=== PATIENT | male | born 1935 | race Caucasian/White ===

== ENCOUNTER 2016-05-25 13:56 | Inpatient (IN) | payer MEDICARE ==
[~2016-05-25] VITALS: Ht 157.5 cm; Wt 45.4 kg
[2016-05-25] VITALS (9 sets, daily range): BP systolic 95–117; BP diastolic 40–69
[2016-05-25] MEDS ORDERED: IV NORMAL SALINE 1000ML BAG 1,000 ML IV ONE ×2 (14:00→15:45)
[2016-05-25] MEDS ORDERED: INSULIN,REGULAR 150 UNIT DRIP 150 ML IV ONE (14:00)
--- NOTE | 2016-05-25 14:20 | RAD ---
EXAM: Chest, single view. HISTORY: Weakness. COMPARISON: None. FINDINGS: A frontal view of the chest is obtained. There is no infiltrate, effusion or pneumothorax. The heart is normal in size. There is a tortuous thoracic aorta. There is slight widening of the right paratracheal stripe likely due to arch great vessels and slight oblique positioning. IMPRESSION: No acute pulmonary finding.
[2016-05-25 14:35] LABS: BASO # 0.1 x10^3/uL (0.0-0.2); BASO % 1 % (0-3); EOS % 0 % (0-3); HEMATOCRIT 38.1 % (39.0-53.0); HEMOGLOBIN 12.1 g/dL (13.0-17.5); LYMPH % 29 % (24-48); MEAN CORPUSCULAR HEMOGLOBIN 31 pg (25-35); MEAN CORPUSCULAR HGB CONC 32 g/dL (31-37); MEAN CORPUSCULAR VOLUME 97 fL (79-100); MONO % 6 % (0-9); NEUT % 64 % (31-73); PLATELET COUNT 251 x10^3/uL (140-400); RED BLOOD COUNT 3.92 x10^6/uL (4.30-5.70); RED CELL DISTRIBUTION WIDTH 14.7 % (11.5-14.5); WHITE BLOOD COUNT 20.5 x10^3/uL (4.0-11.0)
[2016-05-25 14:53] LABS: ALBUMIN 3.3 g/dL (3.4-5.0); ALBUMIN/GLOBULIN RATIO 0.9 (1.0-1.7); CALCIUM 9.5 mg/dL (8.5-10.1); CREATININE 3.8 mg/dL (0.7-1.3); GFR 15.3; POTASSIUM 5.7 mmol/L (3.5-5.1); TOTAL PROTEIN 7.1 g/dL (6.4-8.2)
[2016-05-25 15:17] LABS: PLT ESTIMATE ADEQUATE (ADEQUATE); TOXIC GRANULATION SLIGHT
[2016-05-25] MEDS ORDERED: INSULIN REGULAR VIAL 150 UNIT in 0.9 % SODIUM CHLORIDE 150ML 150 ML IV PRN ×2 (15:30→18:15)
[2016-05-25] MEDS ORDERED: POTASSIUM CHLORIDE 10MEQ 100 ML IV PRN ×6 (15:30→18:15)
--- NOTE | 2016-05-25 15:40 | PHYS DOC ---
Past Medical History Past Medical History: Diabetes-Type II, Unknown Past Surgical History: Other Additional Past Surgical Histo: unknown Alcohol Use: None Additional Information: unknown Drug Use: None Adult General Chief Complaint Chief Complaint: HYPERGLYCEMIA HPI HPI 81-year-old male who's had increasing weakness and altered mental status as well as increased work of breathing for the last several days. Patient has history of noncompliant diabetes and his family at bedside state he's been eating a lot of cake and drinking Mountain Dew. He is not alert and oriented at this time but does follow basic commands. He denies any specific complaints. They believe he does not a do a good job of drink fluids at home. Family at bedside state they are concerned and that he needs assistance and would like him evaluated for this. Review of Systems Review of Systems Constitutional: Denies fever or chills [] Eyes: Denies change in visual acuity, redness, or eye pain [] HENT: Denies nasal congestion or sore throat [] Respiratory: Denies cough or shortness of breath [] Cardiovascular: No additional information not addressed in HPI [] GI: Denies abdominal pain, nausea, vomiting, bloody stools or diarrhea [] : Denies dysuria or hematuria [] Musculoskeletal: Denies back pain or joint pain [] Integument: Denies rash or skin lesions [] Neurologic: Denies headache, focal weakness or sensory changes [] Endocrine: Denies polyuria or polydipsia [] Current Medications Current Medications Current Medications Medications (Trade) Dose Ordered Sig/Nicole Start Time Stop Time Status Last Admin Dose Admin Insulin Human Regular (Novolin R Vial) 10 unit 1X ONCE 05/25/16 16:15 05/25/16 16:16 DC Insulin Human Regular 150 unit/ Sodium Chloride 151.5 ml @ 0 mls/hr CONT PRN PRN 05/25/16 15:30 Lorazepam (Ativan) 2 mg STK-MED ONCE 05/25/16 16:59 05/25/16 17:00 DC Ondansetron HCl 4 mg 4 mg PRN Q8HRS PRN 05/25/16 15:45 05/26/16 15:44 Potassium Chloride (KCl Premix 10meq) 100 ml @ 100 mls/hr PRN Q1HR PRN 05/25/16 15:30 Sodium Bicarbonate 50 meq 1X ONCE 05/25/16 15:45 05/25/16 15:46 DC 05/25/16 16:01 50 MEQ Sodium Chloride (Iv Sodium Chloride 0.9% 1000ml Bag) 1,000 ml @ 125 mls/hr Q8H 05/25/16 15:37 05/26/16 15:36 Allergies Allergies Allergies Coded Allergies Type Severity Reaction Last Updated Verified Penicillins Allergy Intermediate 05/25/16 Yes Physical Exam Physical Exam Constitutional: Well developed, well nourished, no acute distress, non-toxic appearance. [] HENT: Normocephalic, atraumatic, bilateral external ears normal, oropharynx moist, no oral exudates, nose normal. [] Eyes: PERRLA, EOMI, conjunctiva normal, no discharge. [] Neck: Normal range of motion, no tenderness, supple, no stridor. [] Cardiovascular:Heart rate regular rhythm, no murmur [] Lungs & Thorax: Bilateral breath sounds clear to auscultation, tachypnea [] Abdomen: Bowel sounds normal, soft, no tenderness, no masses, no pulsatile masses. [] Skin: Warm, dry, no erythema, no rash. [] Back: No tenderness, no CVA tenderness. [] Extremities: No tenderness, no cyanosis, no clubbing, ROM intact, no edema. [] Neurologic: Alert and oriented X 3, normal motor function, normal sensory function, no focal deficits noted. [] Psychologic: Affect normal, judgement normal, mood normal. [] Current Patient Data Vital Signs Vital Signs Date Time Temp Pulse Resp B/P Pulse Ox O2 Delivery O2 Flow Rate FiO2 05/25/16 16:34 81 24 121/56 96 Room Air 05/25/16 13:57 97.7 97.7 Lab Values Laboratory Tests Test 05/25/16 14:23 05/25/16 15:36 White Blood Count 20.5x10^3/uL (4.0-11.0) H Red Blood Count 3.92x10^6/uL (4.30-5.70) L Hemoglobin 12.1g/dL (13.0-17.5) L Hematocrit 38.1% (39.0-53.0) L Mean Corpuscular Volume 97fL (79-100) Mean Corpuscular Hemoglobin 31pg (25-35) Mean Corpuscular Hemoglobin Concent 32g/dL (31-37) Red Cell Distribution Width 14.7% (11.5-14.5) H Platelet Count 251x10^3/uL (140-400) Neutrophils (%) (Auto) 64% (31-73) Lymphocytes (%) (Auto) 29% (24-48) Monocytes (%) (Auto) 6% (0-9) Eosinophils (%) (Auto) 0% (0-3) Basophils (%) (Auto) 1% (0-3) Neutrophils # (Auto) 13.2x10^3uL (1.8-7.7) H Lymphocytes # (Auto) 6.0x10^3/uL (1.0-4.8) H Monocytes # (Auto) 1.2x10^3/uL (0.0-1.1) H Eosinophils # (Auto) 0.0x10^3/uL (0.0-0.7) Basophils # (Auto) 0.1x10^3/uL (0.0-0.2) Segmented Neutrophils % 68% (35-66) H Band Neutrophils % 4% (0-9) Lymphocytes % 19% (24-48) L Monocytes % 8% (0-10) Myelocytes % 1% (0-0) H Toxic Granulation Slight Platelet Estimate Adequate (ADEQUATE) Sodium Level 136mmol/L (136-145) Potassium Level 5.7mmol/L (3.5-5.1) H Chloride Level 93mmol/L (98-107) L Carbon Dioxide Level 8mmol/L (21-32) *L Anion Gap 35 (6-14) H Blood Urea Nitrogen 100mg/dL (8-26) H Creatinine 3.8mg/dL (0.7-1.3) H Estimated GFR (Cockcroft-Gault) 15.3 BUN/Creatinine Ratio 26 (6-20) H Glucose Level 758mg/dL (70-99) *H Calcium Level 9.5mg/dL (8.5-10.1) Magnesium Level 3.2mg/dL (1.8-2.4) H Total Bilirubin 1.0mg/dL (0.2-1.0) Aspartate Amino Transferase (AST) 15U/L (15-37) Alanine Aminotransferase (ALT) 17U/L (16-63) Alkaline Phosphatase 94U/L (46-116) Total Protein 7.1g/dL (6.4-8.2) Albumin 3.3g/dL (3.4-5.0) L Albumin/Globulin Ratio 0.9 (1.0-1.7) L Urine Collection Type Unknown Urine Color Yellow Urine Clarity Clear Urine pH 5.0 Urine Specific Tensed 1.025 Urine Protein Negativemg/dL (NEG-TRACE) Urine Glucose (UA) >=1000mg/dL (NEG) Urine Ketones (Stick) 40mg/dL (NEG) Urine Blood Trace (NEG) Urine Nitrite Negative (NEG) Urine Bilirubin Moderate (NEG) Urine Urobilinogen Dipstick 0.2mg/dL (0.2 mg/dL) Urine Leukocyte Esterase Negative (NEG) Urine RBC Occ/HPF (0-2) Urine WBC 0/HPF (0-4) Urine Squamous Epithelial Cells None/LPF Urine Bacteria 0/HPF (0-FEW) Urine Mucus Slight/LPF Laboratory Tests 05/25/16 14:23 Laboratory Tests 05/25/16 14:23 EKG EKG EKG as interpreted by me shows sinus rhythm there is a rate of 97 bpm. There appears to be some artifact seen but no obvious ischemic findings. Radiology/Procedures Radiology/Procedures One view of the chest as interpreted by the radiologist does not demonstrate an acute cardiopulmonary process. Course & Med Decision Making Course & Med Decision Making Pertinent Labs and Imaging studies reviewed. (See chart for details) This 81-year-old male has a laboratory workup consistent with severe dehydration and DKA with a significant anion gap and ketones in his urine. He also has evidence of renal failure with a hyperkalemia of 5.7. Blood glucose upon arrival was 758. Multiple fluid boluses were given as well as an insulin drip that was initiated in the department. His source of DKA is likely noncompliance. There is no obvious infection found in his urine or chest x-ray. I discussed the need to admit the patient to the ICU with the hospitalist, Dr. Christie, agreed with this plan. Approximately 30 minutes of critical care time were used. Dragon Disclaimer Dragon Disclaimer This electronic medical record was generated, in whole or in part, using a voice recognition dictation system. Departure Departure Impression: Primary Impression: DKA (diabetic ketoacidoses) Disposition: 09 ADMITTED INPATIENT Admitting Physician: Other Condition: CRITICAL Referrals: UNKNOWN PCP NAME (PCP) RAMSEY GONSALES DO May 25, 2016 15:40
[2016-05-25] MEDS ORDERED: ONDANSETRON PF 4 MG/2 ML VIAL. IV PRN (15:45)
[2016-05-25] MEDS ORDERED: SODIUM BICARB ADULT 8.4% 50 MEQ/50 ML DISP.SYRIN. IV ONE (15:45)
[2016-05-25 16:05] LABS: BILIRUBIN,URINE MODERATE (NEG); GLUCOSE,URINE >=1000 mg/dL (NEG); NITRITE,URINE NEGATIVE (NEG); PROTEIN,URINE NEGATIVE (NEG-TRACE); UROBILINOGEN,URINE 0.2 mg/dL (0.2 mg/dL)
--- NOTE | 2016-05-25 16:10 | EKG ---
[facility] [address] [place] [address] Test Date: 2016-05-25 Test Time: 14:14:24 Pat Name: KRISS EDEN Department: Room: Gender: M Hr Intern: ;; : 1935 Requested By: RAMSEY GONSALES Order Number: [id number] Reading MD: Indy Nj Measurements Intervals Desmet Rate: 97 P: -90 KS: 110 QRS: 62 QRSD: 96 T: 65 QT: 356 QTc: 456 Interpretive Statements SINUS RHYTHM RIGHT VENTRICULAR HYPERTROPHY No previous ECG available for comparison Electronically Signed On 05-25-2016 20:05:47 CDT by Indy Nj
[2016-05-25] MEDS ORDERED: INSULIN REGULAR 100 UNIT/ML 10ML VIAL. IV ONE (16:15)
[2016-05-25 16:25] LABS: BACTERIA,URINE 0 /HPF (0-FEW); RBC,URINE OCC /HPF (0-2); WBC,URINE 0 /HPF (0-4)
[2016-05-25] MEDS ORDERED: LORAZEPAM 2 MG/ML VIAL ONE (16:59)
[2016-05-25] MEDS ORDERED: LORAZEPAM 2 MG/ML VIAL IV ONE (17:00)
[2016-05-25] MEDS: IV NORMAL SALINE 1000ML BAG 1,000 ML IV SCH ×4 (17:08→23:37)
--- NOTE | 2016-05-25 17:10 | ACF ---
Admission Forms Criteria GENERAL ADMISSION CRITERIA (Place 'X' for any and all applicable criteria): Admission is indicated for ANY ONE of the following: [ ]I. Hemodynamic instability as indicated by ANY ONE of the following(1)(2) (3)(4)(5): [ ]a) Vital sign abnormality not readily corrected by appropriate treatment within 12 to 24 hours indicated by ANY ONE of the following: [ ]i) Hypotension [ ]ii) Symptomatic Tachycardia unresponsive to treatment (eg , analgesia, fluids, sedation as indicated) [ ]iii) Orthostatic vital sign changes unresponsive to treatment (eg, fluids) [ ]b) Vital sign abnormality that is severe indicated by ANY ONE of the following: [ ]i) Inadequate perfusion indicated by ANY ONE of the following: [ ]1) Lactic acidosis (greater than 2 mmol/L) [ ]2) New abnormal capillary refill (greater than 3 seconds) [ ]3) Other metabolic acidosis (arterial pH less than 7.35) not otherwise explained [ ]4) Reduced urine output [ ]5) Altered mental status [ ]6) Myocardial Ischemia [ ]v) Mean arterial pressure[A] less than 60 mm Hg [ ]vi) Mean arterial pressure[A] less than 70 mm Hg after 30 minutes of appropriate treatment (eg, fluid resuscitation) [ ]vii) IV inotropic or vasopressor medication required to maintain adequate blood pressure or perfusion [ ]viii) Sustained heart rate greater than 120 beats per minute in adult or child 6 years or older[B]] [ ]II. Hypertension requiring inpatient treatment as indicated by ANY ONE of the following(6)(7)(8): [ ]a) SBP greater than 220 mm Hg or DBP greater than 120 mm Hg despite treatment [ ]b) SBP greater than 140 mm Hg or DBP greater than 100 mm Hg with evidence of acute end organ damage as indicated by ANY ONE of the following: [ ]i) Encephalopathy [ ]ii) Acute renal failure as indicated by new onset of ANY ONE of the following(9)(10)(11)(12)(13): [ ]1) A 3-fold rise in serum creatinine from baseline [ ]2) Serum creatinine greater than 4 mg/dL ( 354 micromoles/L) with acute rise greater than 0.5 mg/dL (44.2 micromoles/L) [ ]3) Reduction of more than 75% in estimated glomerular filtration rate from baseline [ ]4) Estimated glomerular filtration rate less than 35 mL/min/1.73m2 (0.59 mL/sec/1.73m2) in child up to 18 years of age [ ]5) Cessation of urine output indicated by ALL of the following: [ ]A. Adequate volume status [ ]B. Inadequate urine output as indicated by ANY ONE of the following: [ ]a. Urine output less than 0.3 mL/kg/hr for 24 hours [ ]b. Anuria (urine output less than 0.1 mL/kg/hr) for 12 hours [ ]iii) Aortic dissection [ ]iv) Myocardial ischemia [ ]v) Left ventricular heart failure [ ]vi) Retinal hemorrhage [ ]vii) Other significant finding [ ]c) Hypertension in child requiring inpatient treatment as indicated by ALL of the following(14)(15)(16): [ ]i) Outpatient treatment not effective, not available, or not appropriate [ ]ii) SBP or DBP greater than 95th percentile for age [ ]iii) Evidence of acute end organ damage as indicated by ANY ONE of the following: [ ]1) Altered mental status [ ]2) Acute renal failure as indicated by new onset of ANY ONE of the following(9)(10)(11)(12)(13): [ ]A. A 3-fold rise in serum creatinine from baseline [ ]B. Serum creatinine greater than 4 mg/dL (354 micromoles/L) with acute rise greater than 0.5 mg/dL (44.2 micromoles/L) [ ]C. Reduction of more than 75% in estimated glomerular filtration rate from baseline [ ]D. Estimated glomerular filtration rate less than 35 mL/min/1.73m2 (0.59 mL/sec/1.73m2)in child up to 18 years of age [ ]E. Cessation of urine output indicated by ALL of the following: [ ]a. Adequate volume status [ ]b. Inadequate urine output as indicated by ANY ONE of the following: [ ]1) Urine output less than 0.3 mL/kg/hr for 24 hours [ ]2) Anuria (urine output less than 0.1 mL/kg/hr) for 12 hours [ ]3) Severe headache [ ]4) Visual disturbance [ ]5) Retinal hemorrhage [ ]6) Other significant finding [ ]III. Acute cardiac or peripheral ischemia as indicated by ANY ONE of the following: [ ]a) Acute coronary syndrome(17)(18) [ ]b) Acute peripheral ischemia (eg, pulseless, cool, mottled, or cyanotic extremity)(19) [ ]IV. Cardiac arrhythmias or findings of immediate concern indicated by ANY ONE of the following(20)(21): [ ]a) Heart rhythms that are inherently dangerous or unstable indicated by ANY ONE of the following(22)(23)(24): [ ]i) Resuscitated ventricular fibrillation or cardiac arrest [ ]ii) Ventricular escape rhythm [ ]iii) Sustained ventricular tachycardia (30 seconds or more of ventricular rhythm at greater than 100 beats per minute) [ ]iv) Nonsustained ventricular tachycardia and ANY ONE of the following: [ ]1) Suspected cardiac ischemia as cause or consequence of ventricular tachycardia [ ]2) In setting of acute myocarditis [ ]b) Unstable cardiac conduction defects indicated by ANY ONE of the following(24)(25)(26): [ ]i) Type II second-degree atrioventricular block [ ]ii) Third-degree atrioventricular block [ ]iii) New-onset left bundle branch block with suspected myocardial ischemia [ ]c) Any heart rhythm and ANY ONE of the following(22)(23)(27)(28)( 29): [ ] i) Continuous long-term ECG monitoring needed (eg, initiation of drug requiring monitoring for more than 24 hours) [ ] ii) Patient has automatic implanted cardioverter defibrillator that is repeatedly firing, malfunctioning, or in need of immediate adjustment of settings beyond the scope of ambulatory or observation care. [ ]d) Heart rhythms of concern due to ANY ONE of the following: [ ]i) Hypotension [ ]ii) Respiratory distress [ ]iii) Association with other significant symptoms (eg, bradycardia with syncope or ongoing dizziness, supraventricular tachycardia with chest pain) (27)(28) (30) [ ] V. Severe heart failure as indicated by ANY ONE of the following ( 31)(32): [ ]a) Respiratory distress [ ]b) Hypotension [ ]c) Anasarca (refractory to outpatient therapy) [ ]d) Cardiac arrhythmias of immediate concern [ ]e) Myocardial ischemia [ ]. Respiratory abnormalities, including ANY ONE of the following(33)(34) (35)(36): [ ]a) Respiratory rate greater than 30 breaths per minute unresponsive to treatment [A] [ ]b) New saturation of arterial oxygen less than 90% [ ]c) New partial pressure of carbon dioxide greater than 44 mm Hg ( 5.9 kPa) [ ]d) Supplemental oxygen or respiratory treatments needed that are new or not performable at other levels of care [ ]e) New-onset cyanosis [ ]f) Inability to protect airway [ ]g) Chronic lung disease with severe deterioration (not responsive to emergency and observation care treatment as appropriate) as indicated by ANY ONE of the following(34)(36 ): [ ]i) SaO2 5% below baseline in patient with chronic hypoxemia [ ]ii) New requirement for supplemental oxygen to keep SaO2 at baseline or acceptable level [ ]iii) Required supplemental oxygen performable only in acute inpatient setting [ ]iv) Severe airflow or ventilation abnormalities [ ]v) Previously mobile patient unable to walk between rooms [ ]vi Inability to eat or sleep due to dyspnea [ ]vii) Rapid rate of exacerbation onset [ ]viii) Altered mental status ]VII. Severe airflow or ventilation abnormalities (not responsive to emergency and observation care treatment as appropriate) as indicated by ANY ONE of the following(33)(34)(35)(37): [ ]a) PCO2 greater than 42 mm Hg (5.6 kPa) and pH less than 7.35 (new ) [ ]b) Documented PCO2 increased more than 5 mm Hg (0.7 kPa) from disease baseline [ ]c) Airflow measurements [B] less than 60% of previous best or predicted (eg, peak expiratory flow rate less than 300 L/minute) despite intensive emergent treatment [C] [ ]d) Required respiratory treatments that are performable only in acute inpatient setting [ ]VIII. Impending or actual respiratory arrest ( Also use Respiratory Failure GRG for severe respiratory disease and long-term mechanical ventilation patients) [ ]IX. Neurologic abnormalities, including ANY ONE of the following: [ ]a) New findings that suggest ANY ONE of the following: [ ]i) TOPSTITCHER LOCKSTITCH infection(38) [ ]ii) Cerebral bleeding, ischemia, or vasospasm(39)(40) [ ]iii) Increased intracranial pressure, hydrocephalus, or cerebral edema(41)(42)(43) [ ]iv) Spinal cord injury(44) [ ]b) Uncontrolled seizures(45) [ ]c) New-onset coma (eg, Remberto coma scale score less than 9) or unexplained abnormal mental status (eg, Remberto coma scale score less than 14) [D](41)(46)(47) [ ]X. New-onset severe neurologic findings requiring inpatient care; examples include(42)(48)(49): [ ]a) Papilledema [ ]b) Cerebral edema [ ]c) Mass effect on CT scan [ ]XI. Suspected acute intra-abdominal process with peritoneal signs, abdominal mass, or similar findings (50)(51)(52) [X]XII. Severe physiologic disorder remaining after emergency or observation level care (as appropriate) as indicated by ANY ONE of the following (53): [ ]a) Significant dehydration [X]b) Diabetic ketoacidosis [ ]c) Hyperglycemic hyperosmolar state (eg, osmolality greater than 320 mOsm/kg (mmol/kg) [ ]d) Hypoglycemia [ ]e) Other (new) acid-base disorder with pH less than 7.35 or greater than 7.5(54) [ ]f) Thyroid storm (55) [ ]g) Myxedema coma (55) [ ]XIII. Abdominal abnormalities with ANY ONE of the following(56)(57): [ ]a) Absent bowel sounds with complete ileus [ ]b) Signs of intestinal obstruction or peritonitis [E] [ ]c) Nausea and vomiting that cannot be controlled with outpatient or observation care [ ]XIV. Acute renal failure as indicated by new onset of ANY ONE of the following(9)(10)(11)(12)(13): [ ]a) A 3-fold rise in serum creatinine from baseline [ ]b) Serum creatinine greater than 4 mg/dL (354 micromoles/L) with acute rise greater than 0.5 mg/dL (44.2 micromoles/L) [ ]c) Reduction of more than 75% in estimated glomerular filtration rate from baseline [ ]d) Estimated glomerular filtration rate less than 35 mL/min/ 1.73m2 (0.59 mL/sec/1.73m2) in child up to 18 years of age [ ]e) Cessation of urine output indicated by ALL of the following: [ ]i) Adequate volume status [ ]ii) Inadequate urine output as indicated by ANY ONE of the following: [ ]1) Urine output less than 0.3 mL/kg/hr for 24 hours [ ]2) Anuria (urine output less than 0.1 mL/kg/hr) for 12 hours [ ]XV. Significant uremic complications as indicated by ANY ONE of the following(58)(59)(60): [ ]a) Outpatient therapy is ineffective or not feasible for ANY ONE of the following: [ ]i) Severe heart failure [ ]ii) Severehypertension [ ]iii) Pleural effusion [ ]iv) Pericarditis or pericardial effusion [ ]b) Cardiac arrhythmias of immediate concern [ ]c) Intractable nausea or vomiting [ ]d) Recurrent seizures [ ]e) Encephalopathy [ ]f) Bleeding abnormalities (eg, platelet dysfunction) with active (eg, gastrointestinal) bleeding [ ]g) Dialysis indicated before long-term access or ambulatory arrangements can be made [ ]h) Significant metabolic or electrolyte abnormalities (eg, severe acidosis or hyperkalemia) [ ]XVI. High fever or other high-risk infection situation as indicated by ANY ONE of the following(61)(62)(63)(64): [ ]a) Outpatient and observation care antimicrobial treatment unavailable, not effective, or not appropriate [ ]b) Documented bacteremia [ ]c) Temperature greater than 40.5 degrees C (104.9 degrees F) ( oral) [ ]d) Temperature greater than 39.5 degrees C (103.1 degrees F) ( oral) or less than 36 degrees C (96.8 degrees F) (rectal) that does not respond to e treatment and observation care [ ] XVII. Temperature less than 95 degrees F (35 degrees C)(rectal)(65) [ ] XVIII. Severe nutritional abnormalities as indicated by ALL of the following (66)(67): [ ]a) Inability to tolerate or establish sufficient oral or other enteral nutrition in outpatient setting [ ]b) Parenteral nutrition regimen need that must be implemented on inpatient basis [ ] XIX. Severe electrolyte abnormalities indicated by ALL of the following(68) (69)(70): [ ]a) Electrolytes and associated findings are not as expected for patient baseline or acceptable treatment effects. [ ]b) Severe abnormalities indicated by ANY ONE of the following: [ ]i) Sodium less than 130 mEq/L (mmol/L) (new) [ ]ii)Sodium less than 135 mEq/L (mmol/L) with ANY ONE of the following: [ ]1) Uncorrectable (to near normal or chronic baseline) after trial of outpatient and emergency treatment [ ]2) Altered mental status [ ]3) Seizures [ ]4) Severe medical etiology requiring inpatient management (eg, heart failure, hypovolemia) [ ]iii) Sodium greater than 155 mEq/L (mmol/L) [ ]iv) Sodium greater than 150 mEq/L (mmol/L) with ANY ONE of the following: [ ]1) Uncorrectable (to near normal or chronic baseline) with outpatient and emergency treatment [ ]2) Altered mental status [ ]3) Seizures [ ]4) Severe medical etiology (eg, hypovolemia, diabetes insipidus) [ ]v) Potassium less than 2.5 mEq/L (mmol/L) despite outpatient and emergency treatment [ ]vi) Potassium less than 3 mEq/L (mmol/L) with ANY ONE of the following: [ ]1) Weakness [ ]2) Cardiac abnormality (eg, arrhythmia, conduction disturbance) [ ]3) Cardiac ischemia [ ]4) Ileus [ ]5) Ongoing medical cause requiring inpatient management (eg, acute renal wasting or SIADH) [ ]6) Other severe symptoms [ ]vii) Potassium greater than 6.5 mEq/L (mmol/L) [ ]viii) Potassium greater than 5 mEq/L (mmol/L) with ANY ONE of the following: [ ]1) Uncorrectable (to near normal or chronic baseline) with outpatient and emergency treatment [ ]2) Severe ECG findings [F] [ ]3) Acute worsening of renal failure (creatinine greater than 2.5 mg/dL (221 micromoles/L) or significant elevation for age and size) [ ]4) Severe weakness [ ]5) Severe medical etiology (eg, hemolysis, infection, drug overdose) [ ]ix) Calcium less than 7 mg/dL (1.75 mmol/L) despite outpatient and emergency treatment (72) [ ]x) Calcium less than 8 mg/dL (2 mmol/L) with significant symptoms or findings; examples include(72): [ ]1) Altered mental status [ ]2) Muscle spasms [ ]3) Seizures [ ]4) Breathing difficulty [ ]5) Cardiac abnormality (eg, arrhythmia or conduction disturbance) [ ]xi) Calcium greater than 14 mg/dL (3.5 mmol/L)(72) [ ]xii) Calcium greater than 12 mg/dL (3 mmol/L) with ANY ONE of the following(72): [ ]1) Uncorrectable (to near normal or chronic baseline) with outpatient and emergency treatment [ ]2) Significant dehydration or hypovolemia as indicated by ALL of the following(70)(73)(74): [ ]A. Not resolved with initial treatments [ ]B. Clinically significant dehydration as indicated by ANY ONE of the following: [ ]a. Vomiting refractory to outpatient treatment (ie, precluding oral rehydration) [ ]b. Inability to drink [ ]c. Hypernatremia or other electrolyte abnormality unable to be corrected with outpatient and emergency treatment [ ]d. Failure to remain hydrated with outpatient therapy [ ]e. Reduced urine output [ ]f. Hypotension [ ]g. Serious cause for dehydration requiring acute hospitalization (eg, bowel obstruction, increased intracranial pressure, infectious cause) [ ]h. Child with ANY ONE of the following(75): [ ]1) Severe abdominal tenderness [ ]2) Adequate care not available at home [ ]3) Severe dehydration ( greater than 9% loss of body weight) [ ]4) Significant symptoms or findings; examples include: [ ]A. Altered mental status [ ]B. Cardiac abnormality (eg, arrhythmia, conduction disturbance) [ ]C. Malignant etiology requiring inpatient treatment [ ]xiii) Phosphorus less than 1 mg/dL (0.32 mmol/L) [ ]xiv) Phosphorus less than 1.5 mg/dL (0.48 mmol/L) with ANY ONE of the following: [ ]1) Patient unresponsive to outpatient and emergency treatment [ ]2) Significant symptoms or findings; examples include: [ ]A. Weakness [ ]B. Altered mental status [ ]C. Breathing difficulty [ ]D. Seizures [ ]E. Rhabdomyolysis [ ]xv) Phosphorus greater than 10 mg/dL (3.2 mmol/L) [ ]xvi) Phosphorus greater than 4.5 mg/dL (1.45 mmol/L) (new) with ANY ONE of the following: [ ]1) Severe medical etiology (eg, crush injury, acute renal failure) [ ]2) Associated hypocalcemia with significant findings; examples include: [ ]A. Neurologic symptoms [ ]B. Altered mental status [ ]C. Muscle spasms [ ]D. Seizures [ ]E. Breathing difficulty [ ]F. Cardiac abnormality (eg, arrhythmia, conduction disturbance) [ ]xvii) Magnesium less than 1 mg/dL (0.41 mmol/L) [ ]xviii) Magnesium less than 1.5 mg/dL (0.62 mmol/L) with ANY ONE of the following: [ ]1) Patient unresponsive to outpatient and emergency treatment [ ]2) Associated hypocalcemia with significant findings; examples include: [ ]A. Altered mental status [ ]B. Muscle spasms [ ]C. Seizures [ ]D. Breathing difficulty [ ]E. Cardiac abnormality (eg, arrhythmia , conduction disturbance) [ ]3) Associated hypokalemia (potassium less than 3 mEq/L (mmol/L)) with risk of arrhythmia [ ]xix) Magnesium greater than 4 mEq/L (2 mmol/L) [ ]xx) Magnesium greater than 2.5 mEq/L (1.25 mmol/L) with significant symptoms or findings; examples include: [ ]1) Weakness [ ]2) Altered mental status [ ]3) Cardiac abnormality (eg, arrhythmia, conduction disturbance) [ ]4) Breathing difficulty [ ]5) Severe medical etiology (eg, renal failure, hypovolemia) [ ]xxi) Uric acid greater than 20 mg/dL (1190 micromoles/L)(76) [ ]xxii) Uric acid greater than 8 mg/dL (476 micromoles/L) with significant symptoms or findings of tumor lysis syndrome; examples include(76): [ ]1) Creatinine greater than 1.5 times upper limit of normal [ ]2) Cardiac abnormality (eg, arrhythmia, conduction disturbance) [ ]3) Seizure [ ]XX. Acute blood loss causing significant abnormality as indicated by ANY ONE of the following(77)(78): [ ]a) Hemoglobin less than 10 g/dL (100 g/L) (not baseline) [ ]b) Hematocrit less than 30% (0.30) (not baseline) [ ]c) Repeat hematocrit decreased more than 2% (0.02) [ ]d) Uncontrolled bleeding [ ]XXI. Severe anemia indicated by ANY ONE of the following(78)(79): [ ]a) Altered mental status [ ]b) Chest pain [ ]c) Exertional dyspnea [ ]d) Syncope [ ]e) Other findings suggesting inadequate perfusion [ ]f) Treatment with transfusion or volume replacement is ineffective at resolving ANY ONE of the following [G]: [ ]i) Tachycardia for age [ ]ii) Orthostatic vital sign changes as indicated by ANY ONE of the following(80): [ ]1) Fall in SBP of 20 mm Hg or more 1 to 3 minutes after patient sits or stands from recumbent position [ ]2) Fall in DBP of 10 mm Hg or more 1 to 3 minutes after patient sits or stands from recumbent position [ ]XXII. High-risk low platelet count as indicated by ANY ONE of the following( 81)(82): [ ]a) Severe or life-threatening bleeding (eg, intracranial, major gastrointestinal, or extensive mucosal bleeding), with any reduced platelet count [ ]b) Platelet count less than 20,000/mm3 (20 x109/L) with any active bleeding [ ]c) Platelet count less than 10,000/mm3 (10 x109/L) with minor purpura or petechiae [ ]d) Platelet count less than 5000/mm3 (5 x109/L) [ ]e) Low platelet count with hemolytic anemia [ ]XXIII. Disseminated intravascular coagulation(77)(83) [ ]XXIV. Severe adverse drug or systemic toxin reaction requiring inpatient treatment; examples include(84)(85): [ ]a) Serotonin syndrome(86) [ ]b) Neuroleptic malignant syndrome(86) [ ]c) Cholinergic syndrome with severe symptoms (eg, bronchorrhea, weakness, mental status changes, seizures) [ ]d) Sympathetic syndrome with severe symptoms (eg, seizures, mental status changes, cardiac dysrhythmias) [ ]e) Anticholinergic syndrome [ ]XXV. Severe pain requiring acute inpatient management as indicated by ALL of the following (87)(88)(89): [ ]a) Continuous or frequent (eg, every 2 to 4 hours) parenteral analgesics required [H] [ ]b) Rapid improvement expected from treatment or acute intervention (eg, surgery, anesthesia procedure) [ ]XXVI.Severe behavioral health issues judged unmanageable at a lower level of care (eg, residential) in a patient who is ANY ONE of the following(91) [ ]a) Acutely suicidal [ ]b) A danger to self (eg, self-mutilating or suicidal behavior) [ ]c) A danger to others (eg, assaultive or homicidal behavior) [ ]d) Incapacitated because of grave disability (eg, inability to provide for self at lower level of care) (92) [ ]XXVII. Inpatient monitoring needed; examples include(1)(3)(87)(93)(94)(95)(96 ): [ ]a) Vital signs, neurologic signs, or vascular checks more frequently than every 4 hours [ ]b) Cardiac or respiratory monitoring beyond the scope (eg, over 24 hours) of observation care [ ]c) Pulmonary artery catheter monitoring [ ]d) Suspected compartment syndrome(97) (98) [ ]e) Cerebral bleeding, hydrocephalus, or vasospasm monitoring [ ]f) Increased intracranial pressure or cerebral edema monitoring [ ]g) monitoring [ ]XXVIII. Treatment requiring inpatient care; examples include: [ ]a) IV fluid to replace significant ongoing losses (greater than 3 L/m2 per day)(53) [ ]b) High concentration oxygen (greater than 40%)(33)(99)(100) [ ]c) Frequent respiratory therapy (more frequently than every 4 hours) to maintain airflow rates greater than 60% of baseline(33)(99)(100) [ ]d) Epidural analgesia(87) [ ]e) IV anticoagulation, vasoactive, or antiarrhythmic medication(19 )(23) [ ]f) Acute thrombolytics (generally require 24 hours of observation )(101)(102) [ ]XXIX. Emergency procedures needed; examples include: [ ]a) Emergency inpatient surgery [ ]b) Temporary pacemaker placement(103) [ ]c) Chest tube placement with active evacuation (eg, suction, drainage)(104) [ ]d) Emergent cardioversion(105) [ ]e) Emergent cardiac or vascular procedures (eg, cardiac catheterization, angioplasty) (17)(18) [ ]f) Emergent dialysis access placement and institution(10)(106) [ ]g) Emergent pericardiocentesis(107) [ ]h) Emergent plasmapheresis or leukapheresis(83) [ ]i) Emergent tracheostomy The original [employer] content created by [employer] has been revised. The portions of the content which have been revised are identified through the use of italic text or in bold, and [facility] has neither reviewed nor approved the modified material. All other unmodified content is copyright [employer]. Please see references footnoted in the original [employer] edition 2016 Admission Criteria Met?: Yes DINA ARCINIEGA May 25, 2016 17:10
[2016-05-25] MEDS: IV DEXTROSE 5% - 0.9 % NACL 1,000 ML IV SCH ×2 (19:31→23:30)
[2016-05-25 19:43] LABS: CALCIUM 8.7 mg/dL (8.5-10.1); CREATININE 3.1 mg/dL (0.7-1.3); GFR 19.4; MAGNESIUM 2.7 mg/dL (1.8-2.4); PHOSPHORUS 5.4 mg/dL (2.6-4.7); POTASSIUM 3.9 mmol/L (3.5-5.1)
[2016-05-25] MEDS: IV DEXTROSE 5 %-0.45 % NACL 1,000 ML IV SCH ×2 (20:40→23:00)
[2016-05-25] MEDS ORDERED: FAMOTIDINE 20 MG TABLET. PO ONE (21:15)
[2016-05-25] MEDS ORDERED: DEXTROSE 50% 25 GM / 50ML DISP.SYRIN. IV PRN (21:15)
[2016-05-25] MEDS: HEPARIN PF for SUB-Q USE 5,000 UNIT/0.5 ML VIAL. SQ SCH (22:03)
[2016-05-25] MEDS: INSULIN DETEMIR 300 UNITS/3 ML INSULN.PEN. SQ SCH (22:05)
[2016-05-26] VITALS (19 sets, daily range): BP systolic 82–112; BP diastolic 36–68
--- NOTE | 2016-05-26 00:39 | HP ---
ADMIT DATE: 05/25/2016 CHIEF COMPLAINT: Hyperglycemic coma. HISTORY OF PRESENT ILLNESS: The patient is an 81-year-old gentleman who presented to the Emergency Room with altered mental status, increasing weakness and increased work of breathing for the past few days. Family apparently checks up on him and had noticed that he had been eating a lot of cakes that he bought at the store and drinking Mountain Dew. He clearly is not compliant with his diet or probably his insulin regimen. He himself denies any problems or specific complaints in the Emergency Room, where he was found with a blood sugar of greater than 1600. He was promptly admitted in DKA. PAST MEDICAL HISTORY: Diabetes mellitus type 2. Rest of past medical history is unknown to family and the patient is not relating further history. SOCIAL HISTORY: Lives by himself. Apparently, no ongoing toxic habits. FAMILY HISTORY: Positive for diabetes. ALLERGIES: PENICILLIN. MEDICATIONS: MAR reconciled with home medications. REVIEW OF SYSTEMS: The patient is rather lethargic. Denies any pain. Not answering specific questions. PHYSICAL EXAMINATION: VITAL SIGNS: From today show a blood pressure of 108/53, heart rate of 98, respiratory rate at 20. He is afebrile. GENERAL: This is a cachectic-appearing 81-year-old gentleman, lethargic, opening eyes detention briefly. HEENT: Oral mucosa is dry. NECK: Supple. LUNGS: Clear to auscultation bilaterally. CARDIOVASCULAR: Heart is regular rate and rhythm. ABDOMEN: Has positive bowel sounds, soft, nontender, cachectic. EXTREMITIES: Show no edema, no clubbing, no cyanosis. SKIN: Warm, soft and dry without any rash. LABORATORY DATA: CBC with a WBC of 20.5, hemoglobin 12.1, platelets of 251. Differential essentially within normal limits. BUN and creatinine of 90 and 3.1, sodium of 146, potassium 3.9, glucose at admission 758, CO2 at 8, anion gap at 35. IMAGING: Chest x-ray in the Emergency Room showed no acute pulmonary findings. ASSESSMENT AND PLAN: The patient is an 81-year-old gentleman with diabetes, who is clearly noncompliant with diet and/or his insulin regimen. He has been admitted to the ICU for diabetic ketoacidosis protocol, insulin drip. We will continue regimen alongside rehydration aggressively. His home dose of insulin is unknown. Once his gap is closed, we will switch him to long and short-acting insulin. ADA diet will be instituted. Other home medications are unknown at this time. We will have to elucidate which pharmacy he is using to obtain further information. His sister feels that he is quite depressed, which may be at the bottom of all his noncompliance. Needs reevaluation in the morning once mental status has cleared. For prophylaxis, he will be started on Lovenox as well as H2 blockers. LAURI MOCK MD DR: UR/nts JOB#: [id number] / [id number] VIOLA
[2016-05-26 01:00] LABS: CREATININE 2.4 mg/dL (0.7-1.3); MAGNESIUM 2.3 mg/dL (1.8-2.4); POTASSIUM 3.5 mmol/L (3.5-5.1)
[2016-05-26] MEDS: IV DEXTROSE 5 %-0.45 % NACL 1,000 ML IV SCH ×6 (03:00→23:00)
[2016-05-26] MEDS: IV NORMAL SALINE 1000ML BAG 1,000 ML IV SCH ×7 (03:00→23:00)
[2016-05-26] MEDS: IV DEXTROSE 5% - 0.9 % NACL 1,000 ML IV SCH ×6 (03:30→23:30)
[2016-05-26 04:21] LABS: BASO # 0.1 x10^3/uL (0.0-0.2); BASO % 1 % (0-3); EOS % 0 % (0-3); HEMATOCRIT 30.2 % (39.0-53.0); HEMOGLOBIN 10.4 g/dL (13.0-17.5); LYMPH # 5.3 x10^3/uL (1.0-4.8); LYMPH % 35 % (24-48); MEAN CORPUSCULAR HEMOGLOBIN 31 pg (25-35); MEAN CORPUSCULAR HGB CONC 35 g/dL (31-37); MEAN CORPUSCULAR VOLUME 90 fL (79-100); MONO % 5 % (0-9); NEUT % 59 % (31-73); PLATELET COUNT 174 x10^3/uL (140-400); RED BLOOD COUNT 3.34 x10^6/uL (4.30-5.70); RED CELL DISTRIBUTION WIDTH 13.7 % (11.5-14.5); WHITE BLOOD COUNT 15.3 x10^3/uL (4.0-11.0)
[2016-05-26 04:49] LABS: CALCIUM 8.2 mg/dL (8.5-10.1); GFR 32.1; POTASSIUM 3.6 mmol/L (3.5-5.1)
[2016-05-26] MEDS: INSULIN ASPART 300 UNITS/3 ML INSULN.PEN SQ SCH ×3 (08:00→17:27)
[2016-05-26] MEDS: HEPARIN PF for SUB-Q USE 5,000 UNIT/0.5 ML VIAL. SQ SCH (10:22)
--- NOTE | 2016-05-26 11:33 | PDOC ---
PROGRESS NOTES Chief Complaint Chief Complaint CC - Hyperglycemic coma Assessment: DKA DM type II History of Present Illness History of Present Illness Patient was laying in the bed, was drowsy, opening his eyes intermittently, nonverbal and was not responding to questions. His labs has improved since admission. Plan of care discussed with RN. Hope to transfer him to med/tele soon. Vitals Vitals Vital Signs Date Time Temp Pulse Resp B/P Pulse Ox O2 Delivery O2 Flow Rate FiO2 05/26/16 11:00 89 14 95/51 94 Room Air 05/26/16 08:00 97.9 97.9 Physical Exam General: Other (was drowsy, nonverbal) Heart: Regular rate Lungs: Clear Abdomen: Soft, No tenderness Extremities: No clubbing, No cyanosis Skin: No significant lesion Labs LABS Laboratory Tests Test 05/25/16 14:23 05/25/16 15:36 05/25/16 18:17 05/25/16 19:00 White Blood Count 20.5x10^3/uL (4.0-11.0) Red Blood Count 3.92x10^6/uL (4.30-5.70) Hemoglobin 12.1g/dL (13.0-17.5) Hematocrit 38.1% (39.0-53.0) Mean Corpuscular Volume 97fL (79-100) Mean Corpuscular Hemoglobin 31pg (25-35) Mean Corpuscular Hemoglobin Concent 32g/dL (31-37) Red Cell Distribution Width 14.7% (11.5-14.5) Platelet Count 251x10^3/uL (140-400) Neutrophils (%) (Auto) 64% (31-73) Lymphocytes (%) (Auto) 29% (24-48) Monocytes (%) (Auto) 6% (0-9) Eosinophils (%) (Auto) 0% (0-3) Basophils (%) (Auto) 1% (0-3) Neutrophils # (Auto) 13.2x10^3uL (1.8-7.7) Lymphocytes # (Auto) 6.0x10^3/uL (1.0-4.8) Monocytes # (Auto) 1.2x10^3/uL (0.0-1.1) Eosinophils # (Auto) 0.0x10^3/uL (0.0-0.7) Basophils # (Auto) 0.1x10^3/uL (0.0-0.2) Segmented Neutrophils % 68% (35-66) Band Neutrophils % 4% (0-9) Lymphocytes % 19% (24-48) Monocytes % 8% (0-10) Myelocytes % 1% (0-0) Toxic Granulation Slight Platelet Estimate Adequate (ADEQUATE) Sodium Level 136mmol/L (136-145) 146mmol/L (136-145) Potassium Level 5.7mmol/L (3.5-5.1) 3.9mmol/L (3.5-5.1) Chloride Level 93mmol/L (98-107) 103mmol/L (98-107) Carbon Dioxide Level 8mmol/L (21-32) 12mmol/L (21-32) Anion Gap 35 (6-14) 31 (6-14) Blood Urea Nitrogen 100mg/dL (8-26) 90mg/dL (8-26) Creatinine 3.8mg/dL (0.7-1.3) 3.1mg/dL (0.7-1.3) Estimated GFR (Cockcroft-Gault) 15.3 19.4 BUN/Creatinine Ratio 26 (6-20) Glucose Level 758mg/dL (70-99) 256mg/dL (70-99) Calcium Level 9.5mg/dL (8.5-10.1) 8.7mg/dL (8.5-10.1) Magnesium Level 3.2mg/dL (1.8-2.4) 2.7mg/dL (1.8-2.4) Total Bilirubin 1.0mg/dL (0.2-1.0) Aspartate Amino Transf (AST/SGOT) 15U/L (15-37) Alanine Aminotransferase (ALT/SGPT) 17U/L (16-63) Alkaline Phosphatase 94U/L (46-116) Total Protein 7.1g/dL (6.4-8.2) Albumin 3.3g/dL (3.4-5.0) Albumin/Globulin Ratio 0.9 (1.0-1.7) Urine Collection Type Unknown Urine Color Yellow Urine Clarity Clear Urine pH 5.0 Urine Specific [place] 1.025 Urine Protein Negativemg/dL (NEG-TRACE) Urine Glucose (UA) >=1000mg/dL (NEG) Urine Ketones (Stick) 40mg/dL (NEG) Urine Blood Trace (NEG) Urine Nitrite Negative (NEG) Urine Bilirubin Moderate (NEG) Urine Urobilinogen Dipstick 0.2mg/dL (0.2 mg/dL) Urine Leukocyte Esterase Negative (NEG) Urine RBC Occ/HPF (0-2) Urine WBC 0/HPF (0-4) Urine Squamous Epithelial Cells None/LPF Urine Bacteria 0/HPF (0-FEW) Urine Mucus Slight/LPF Glucose (Fingerstick) 319mg/dL (70-99) Phosphorus Level 5.4mg/dL (2.6-4.7) Test 05/25/16 19:22 05/25/16 20:25 05/25/16 21:28 05/25/16 22:30 Glucose (Fingerstick) 181mg/dL (70-99) 168mg/dL (70-99) 171mg/dL (70-99) 155mg/dL (70-99) Test 05/25/16 23:33 05/26/16 00:30 05/26/16 00:34 05/26/16 01:36 Glucose (Fingerstick) 142mg/dL (70-99) 99mg/dL (70-99) 60mg/dL (70-99) Sodium Level 146mmol/L (136-145) Potassium Level 3.5mmol/L (3.5-5.1) Chloride Level 108mmol/L (98-107) Carbon Dioxide Level 24mmol/L (21-32) Anion Gap 14 (6-14) Blood Urea Nitrogen 72mg/dL (8-26) Creatinine 2.4mg/dL (0.7-1.3) Estimated GFR (Cockcroft-Gault) 26.0 Glucose Level 110mg/dL (70-99) Calcium Level 8.0mg/dL (8.5-10.1) Phosphorus Level 3.0mg/dL (2.6-4.7) Magnesium Level 2.3mg/dL (1.8-2.4) Test 05/26/16 01:54 05/26/16 04:04 05/26/16 04:08 05/26/16 08:03 Glucose (Fingerstick) 120mg/dL (70-99) 107mg/dL (70-99) 123mg/dL (70-99) White Blood Count 15.3x10^3/uL (4.0-11.0) Red Blood Count 3.34x10^6/uL (4.30-5.70) Hemoglobin 10.4g/dL (13.0-17.5) Hematocrit 30.2% (39.0-53.0) Mean Corpuscular Volume 90fL (79-100) Mean Corpuscular Hemoglobin 31pg (25-35) Mean Corpuscular Hemoglobin Concent 35g/dL (31-37) Red Cell Distribution Width 13.7% (11.5-14.5) Platelet Count 174x10^3/uL (140-400) Neutrophils (%) (Auto) 59% (31-73) Lymphocytes (%) (Auto) 35% (24-48) Monocytes (%) (Auto) 5% (0-9) Eosinophils (%) (Auto) 0% (0-3) Basophils (%) (Auto) 1% (0-3) Neutrophils # (Auto) 9.1x10^3uL (1.8-7.7) Lymphocytes # (Auto) 5.3x10^3/uL (1.0-4.8) Monocytes # (Auto) 0.8x10^3/uL (0.0-1.1) Eosinophils # (Auto) 0.0x10^3/uL (0.0-0.7) Basophils # (Auto) 0.1x10^3/uL (0.0-0.2) Sodium Level 145mmol/L (136-145) Potassium Level 3.6mmol/L (3.5-5.1) Chloride Level 108mmol/L (98-107) Carbon Dioxide Level 24mmol/L (21-32) Anion Gap 13 (6-14) Blood Urea Nitrogen 65mg/dL (8-26) Creatinine 2.0mg/dL (0.7-1.3) Estimated GFR (Cockcroft-Gault) 32.1 Glucose Level 106mg/dL (70-99) Calcium Level 8.2mg/dL (8.5-10.1) Review of Systems Review of Systems Afebrile no n/v/d no SOB, CP was drowsy, nonverbal, not answering the questions Assessment and Plan Assessmemt and Plan ASSESSMENT: DKA DM type II PLAN: Continue insulin sliding scale labs has improved Hope to transfer to regular floor soon recheck labs in AM PT/OT Appreciate subspecialities inputs and recommendations Problems Medical Problems: (1) DKA (diabetic ketoacidoses) Status: Acute Problems: Comment Review of Relevant I have reviewed the following items monika (where applicable) has been applied. Labs Laboratory Tests Test 05/25/16 14:23 05/25/16 15:36 05/25/16 18:17 05/25/16 19:00 White Blood Count 20.5x10^3/uL (4.0-11.0) Red Blood Count 3.92x10^6/uL (4.30-5.70) Hemoglobin 12.1g/dL (13.0-17.5) Hematocrit 38.1% (39.0-53.0) Mean Corpuscular Volume 97fL (79-100) Mean Corpuscular Hemoglobin 31pg (25-35) Mean Corpuscular Hemoglobin Concent 32g/dL (31-37) Red Cell Distribution Width 14.7% (11.5-14.5) Platelet Count 251x10^3/uL (140-400) Neutrophils (%) (Auto) 64% (31-73) Lymphocytes (%) (Auto) 29% (24-48) Monocytes (%) (Auto) 6% (0-9) Eosinophils (%) (Auto) 0% (0-3) Basophils (%) (Auto) 1% (0-3) Neutrophils # (Auto) 13.2x10^3uL (1.8-7.7) Lymphocytes # (Auto) 6.0x10^3/uL (1.0-4.8) Monocytes # (Auto) 1.2x10^3/uL (0.0-1.1) Eosinophils # (Auto) 0.0x10^3/uL (0.0-0.7) Basophils # (Auto) 0.1x10^3/uL (0.0-0.2) Segmented Neutrophils % 68% (35-66) Band Neutrophils % 4% (0-9) Lymphocytes % 19% (24-48) Monocytes % 8% (0-10) Myelocytes % 1% (0-0) Toxic Granulation Slight Platelet Estimate Adequate (ADEQUATE) Sodium Level 136mmol/L (136-145) 146mmol/L (136-145) Potassium Level 5.7mmol/L (3.5-5.1) 3.9mmol/L (3.5-5.1) Chloride Level 93mmol/L (98-107) 103mmol/L (98-107) Carbon Dioxide Level 8mmol/L (21-32) 12mmol/L (21-32) Anion Gap 35 (6-14) 31 (6-14) Blood Urea Nitrogen 100mg/dL (8-26) 90mg/dL (8-26) Creatinine 3.8mg/dL (0.7-1.3) 3.1mg/dL (0.7-1.3) Estimated GFR (Cockcroft-Gault) 15.3 19.4 BUN/Creatinine Ratio 26 (6-20) Glucose Level 758mg/dL (70-99) 256mg/dL (70-99) Calcium Level 9.5mg/dL (8.5-10.1) 8.7mg/dL (8.5-10.1) Magnesium Level 3.2mg/dL (1.8-2.4) 2.7mg/dL (1.8-2.4) Total Bilirubin 1.0mg/dL (0.2-1.0) Aspartate Amino Transf (AST/SGOT) 15U/L (15-37) Alanine Aminotransferase (ALT/SGPT) 17U/L (16-63) Alkaline Phosphatase 94U/L (46-116) Total Protein 7.1g/dL (6.4-8.2) Albumin 3.3g/dL (3.4-5.0) Albumin/Globulin Ratio 0.9 (1.0-1.7) Urine Collection Type Unknown Urine Color Yellow Urine Clarity Clear Urine pH 5.0 Urine Specific [place] 1.025 Urine Protein Negativemg/dL (NEG-TRACE) Urine Glucose (UA) >=1000mg/dL (NEG) Urine Ketones (Stick) 40mg/dL (NEG) Urine Blood Trace (NEG) Urine Nitrite Negative (NEG) Urine Bilirubin Moderate (NEG) Urine Urobilinogen Dipstick 0.2mg/dL (0.2 mg/dL) Urine Leukocyte Esterase Negative (NEG) Urine RBC Occ/HPF (0-2) Urine WBC 0/HPF (0-4) Urine Squamous Epithelial Cells None/LPF Urine Bacteria 0/HPF (0-FEW) Urine Mucus Slight/LPF Glucose (Fingerstick) 319mg/dL (70-99) Phosphorus Level 5.4mg/dL (2.6-4.7) Test 05/25/16 19:22 05/25/16 20:25 05/25/16 21:28 05/25/16 22:30 Glucose (Fingerstick) 181mg/dL (70-99) 168mg/dL (70-99) 171mg/dL (70-99) 155mg/dL (70-99) Test 05/25/16 23:33 05/26/16 00:30 05/26/16 00:34 05/26/16 01:36 Glucose (Fingerstick) 142mg/dL (70-99) 99mg/dL (70-99) 60mg/dL (70-99) Sodium Level 146mmol/L (136-145) Potassium Level 3.5mmol/L (3.5-5.1) Chloride Level 108mmol/L (98-107) Carbon Dioxide Level 24mmol/L (21-32) Anion Gap 14 (6-14) Blood Urea Nitrogen 72mg/dL (8-26) Creatinine 2.4mg/dL (0.7-1.3) Estimated GFR (Cockcroft-Gault) 26.0 Glucose Level 110mg/dL (70-99) Calcium Level 8.0mg/dL (8.5-10.1) Phosphorus Level 3.0mg/dL (2.6-4.7) Magnesium Level 2.3mg/dL (1.8-2.4) Test 05/26/16 01:54 05/26/16 04:04 05/26/16 04:08 05/26/16 08:03 Glucose (Fingerstick) 120mg/dL (70-99) 107mg/dL (70-99) 123mg/dL (70-99) White Blood Count 15.3x10^3/uL (4.0-11.0) Red Blood Count 3.34x10^6/uL (4.30-5.70) Hemoglobin 10.4g/dL (13.0-17.5) Hematocrit 30.2% (39.0-53.0) Mean Corpuscular Volume 90fL (79-100) Mean Corpuscular Hemoglobin 31pg (25-35) Mean Corpuscular Hemoglobin Concent 35g/dL (31-37) Red Cell Distribution Width 13.7% (11.5-14.5) Platelet Count 174x10^3/uL (140-400) Neutrophils (%) (Auto) 59% (31-73) Lymphocytes (%) (Auto) 35% (24-48) Monocytes (%) (Auto) 5% (0-9) Eosinophils (%) (Auto) 0% (0-3) Basophils (%) (Auto) 1% (0-3) Neutrophils # (Auto) 9.1x10^3uL (1.8-7.7) Lymphocytes # (Auto) 5.3x10^3/uL (1.0-4.8) Monocytes # (Auto) 0.8x10^3/uL (0.0-1.1) Eosinophils # (Auto) 0.0x10^3/uL (0.0-0.7) Basophils # (Auto) 0.1x10^3/uL (0.0-0.2) Sodium Level 145mmol/L (136-145) Potassium Level 3.6mmol/L (3.5-5.1) Chloride Level 108mmol/L (98-107) Carbon Dioxide Level 24mmol/L (21-32) Anion Gap 13 (6-14) Blood Urea Nitrogen 65mg/dL (8-26) Creatinine 2.0mg/dL (0.7-1.3) Estimated GFR (Cockcroft-Gault) 32.1 Glucose Level 106mg/dL (70-99) Calcium Level 8.2mg/dL (8.5-10.1) Laboratory Tests Test 05/25/16 14:23 05/25/16 15:36 05/25/16 18:17 05/25/16 19:00 White Blood Count 20.5x10^3/uL (4.0-11.0) Red Blood Count 3.92x10^6/uL (4.30-5.70) Hemoglobin 12.1g/dL (13.0-17.5) Hematocrit 38.1% (39.0-53.0) Mean Corpuscular Volume 97fL (79-100) Mean Corpuscular Hemoglobin 31pg (25-35) Mean Corpuscular Hemoglobin Concent 32g/dL (31-37) Red Cell Distribution Width 14.7% (11.5-14.5) Platelet Count 251x10^3/uL (140-400) Neutrophils (%) (Auto) 64% (31-73) Lymphocytes (%) (Auto) 29% (24-48) Monocytes (%) (Auto) 6% (0-9) Eosinophils (%) (Auto) 0% (0-3) Basophils (%) (Auto) 1% (0-3) Neutrophils # (Auto) 13.2x10^3uL (1.8-7.7) Lymphocytes # (Auto) 6.0x10^3/uL (1.0-4.8) Monocytes # (Auto) 1.2x10^3/uL (0.0-1.1) Eosinophils # (Auto) 0.0x10^3/uL (0.0-0.7) Basophils # (Auto) 0.1x10^3/uL (0.0-0.2) Segmented Neutrophils % 68% (35-66) Band Neutrophils % 4% (0-9) Lymphocytes % 19% (24-48) Monocytes % 8% (0-10) Myelocytes % 1% (0-0) Toxic Granulation Slight Platelet Estimate Adequate (ADEQUATE) Sodium Level 136mmol/L (136-145) 146mmol/L (136-145) Potassium Level 5.7mmol/L (3.5-5.1) 3.9mmol/L (3.5-5.1) Chloride Level 93mmol/L (98-107) 103mmol/L (98-107) Carbon Dioxide Level 8mmol/L (21-32) 12mmol/L (21-32) Anion Gap 35 (6-14) 31 (6-14) Blood Urea Nitrogen 100mg/dL (8-26) 90mg/dL (8-26) Creatinine 3.8mg/dL (0.7-1.3) 3.1mg/dL (0.7-1.3) Estimated GFR (Cockcroft-Gault) 15.3 19.4 BUN/Creatinine Ratio 26 (6-20) Glucose Level 758mg/dL (70-99) 256mg/dL (70-99) Calcium Level 9.5mg/dL (8.5-10.1) 8.7mg/dL (8.5-10.1) Magnesium Level 3.2mg/dL (1.8-2.4) 2.7mg/dL (1.8-2.4) Total Bilirubin 1.0mg/dL (0.2-1.0) Aspartate Amino Transf (AST/SGOT) 15U/L (15-37) Alanine Aminotransferase (ALT/SGPT) 17U/L (16-63) Alkaline Phosphatase 94U/L (46-116) Total Protein 7.1g/dL (6.4-8.2) Albumin 3.3g/dL (3.4-5.0) Albumin/Globulin Ratio 0.9 (1.0-1.7) Urine Collection Type Unknown Urine Color Yellow Urine Clarity Clear Urine pH 5.0 Urine Specific [place] 1.025 Urine Protein Negativemg/dL (NEG-TRACE) Urine Glucose (UA) >=1000mg/dL (NEG) Urine Ketones (Stick) 40mg/dL (NEG) Urine Blood Trace (NEG) Urine Nitrite Negative (NEG) Urine Bilirubin Moderate (NEG) Urine Urobilinogen Dipstick 0.2mg/dL (0.2 mg/dL) Urine Leukocyte Esterase Negative (NEG) Urine RBC Occ/HPF (0-2) Urine WBC 0/HPF (0-4) Urine Squamous Epithelial Cells None/LPF Urine Bacteria 0/HPF (0-FEW) Urine Mucus Slight/LPF Glucose (Fingerstick) 319mg/dL (70-99) Phosphorus Level 5.4mg/dL (2.6-4.7) Test 05/25/16 19:22 05/25/16 20:25 05/25/16 21:28 05/25/16 22:30 Glucose (Fingerstick) 181mg/dL (70-99) 168mg/dL (70-99) 171mg/dL (70-99) 155mg/dL (70-99) Test 05/25/16 23:33 05/26/16 00:30 05/26/16 00:34 05/26/16 01:36 Glucose (Fingerstick) 142mg/dL (70-99) 99mg/dL (70-99) 60mg/dL (70-99) Sodium Level 146mmol/L (136-145) Potassium Level 3.5mmol/L (3.5-5.1) Chloride Level 108mmol/L (98-107) Carbon Dioxide Level 24mmol/L (21-32) Anion Gap 14 (6-14) Blood Urea Nitrogen 72mg/dL (8-26) Creatinine 2.4mg/dL (0.7-1.3) Estimated GFR (Cockcroft-Gault) 26.0 Glucose Level 110mg/dL (70-99) Calcium Level 8.0mg/dL (8.5-10.1) Phosphorus Level 3.0mg/dL (2.6-4.7) Magnesium Level 2.3mg/dL (1.8-2.4) Test 05/26/16 01:54 05/26/16 04:04 05/26/16 04:08 05/26/16 08:03 Glucose (Fingerstick) 120mg/dL (70-99) 107mg/dL (70-99) 123mg/dL (70-99) White Blood Count 15.3x10^3/uL (4.0-11.0) Red Blood Count 3.34x10^6/uL (4.30-5.70) Hemoglobin 10.4g/dL (13.0-17.5) Hematocrit 30.2% (39.0-53.0) Mean Corpuscular Volume 90fL (79-100) Mean Corpuscular Hemoglobin 31pg (25-35) Mean Corpuscular Hemoglobin Concent 35g/dL (31-37) Red Cell Distribution Width 13.7% (11.5-14.5) Platelet Count 174x10^3/uL (140-400) Neutrophils (%) (Auto) 59% (31-73) Lymphocytes (%) (Auto) 35% (24-48) Monocytes (%) (Auto) 5% (0-9) Eosinophils (%) (Auto) 0% (0-3) Basophils (%) (Auto) 1% (0-3) Neutrophils # (Auto) 9.1x10^3uL (1.8-7.7) Lymphocytes # (Auto) 5.3x10^3/uL (1.0-4.8) Monocytes # (Auto) 0.8x10^3/uL (0.0-1.1) Eosinophils # (Auto) 0.0x10^3/uL (0.0-0.7) Basophils # (Auto) 0.1x10^3/uL (0.0-0.2) Sodium Level 145mmol/L (136-145) Potassium Level 3.6mmol/L (3.5-5.1) Chloride Level 108mmol/L (98-107) Carbon Dioxide Level 24mmol/L (21-32) Anion Gap 13 (6-14) Blood Urea Nitrogen 65mg/dL (8-26) Creatinine 2.0mg/dL (0.7-1.3) Estimated GFR (Cockcroft-Gault) 32.1 Glucose Level 106mg/dL (70-99) Calcium Level 8.2mg/dL (8.5-10.1) Medications Current Medications Sodium Chloride 1,000 ml @ 1,000 mls/hr 1X ONCE IV Last administered on 14:27; Start 05/25/16 at 14:00; Stop 05/25/16 at 14:59; Status DC Insulin Human Regular 150 ml @ 0 mls/hr 1X ONCE IV Last administered on 16:05; Start 05/25/16 at 14:00; Stop 05/25/16 at 14:07; Status DC Insulin Human Regular 150 unit/ Sodium Chloride 151.5 ml @ 0 mls/hr CONT PRN PRN IV PER PROTOCOL; Start 05/25/16 at 15:30 Potassium Chloride 100 ml @ 100 mls/hr PRN Q1HR PRN IV SEE COMMENTS; Start at 15:30; Stop 05/25/16 at 18:20; Status DC Potassium Chloride 100 ml @ 100 mls/hr PRN Q1HR PRN IV SEE COMMENTS; Start at 15:30; Stop 05/25/16 at 18:21; Status DC Potassium Chloride 100 ml @ 100 mls/hr PRN Q1HR PRN IV SEE COMMENTS; Start at 15:30; Stop 05/25/16 at 18:21; Status DC Sodium Chloride (Iv Sodium Chloride 0.9% 1000ml Bag) 1,000 ml @ 1,000 mls/hr 1X ONCE IV Last administered on 05/25/16 15:45; Start 05/25/16 at 15:45; Stop 05/25/16 at 16:44; Status DC Ondansetron HCl 4 mg 4 mg PRN Q8HRS PRN IV NAUSEA/VOMITING; Start 05/25/16 at 15:45; Stop 05/26/16 at 15:44 Sodium Chloride (Iv Sodium Chloride 0.9% 1000ml Bag) 1,000 ml @ 125 mls/hr Q8H IV Last administered on 05/25/16 17:08; Start 05/25/16 at 15:37; Stop at 15:36 Sodium Bicarbonate 50 meq 1X ONCE IV Last administered on 05/25/16 16:01; Start 05/25/16 at 15:45; Stop 05/25/16 at 15:46; Status DC Insulin Human Regular (Novolin R Vial) 10 unit 1X ONCE IV ; Start 05/25/16 at 16:15; Stop 05/25/16 at 16:16; Status DC Lorazepam (Ativan) 1 mg 1X ONCE IV Last administered on 05/25/16 17:06; Start 05/25/16 at 17:00; Stop 05/25/16 at 17:01; Status DC Lorazepam 2 mg 2 mg STK-MED ONCE .ROUTE ; Start 05/25/16 at 16:59; Stop at 17:00; Status DC Sodium Chloride 1,000 ml @ 250 mls/hr Q4H IV ; Start 05/25/16 at 19:00 Dextrose/Sodium Chloride 1,000 ml @ 250 mls/hr Q4H IV Last administered on 20:40; Start 05/25/16 at 19:00 Insulin Human Regular 150 unit/ Sodium Chloride 151.5 ml @ 0 mls/hr CONT PRN PRN IV PER PROTOCOL; Start 05/25/16 at 18:15; Status UNV Potassium Chloride 100 ml @ 100 mls/hr PRN Q1HR PRN IV SEE COMMENTS; Start at 18:15 Potassium Chloride 100 ml @ 100 mls/hr PRN Q1HR PRN IV SEE COMMENTS; Start at 18:15 Potassium Chloride 100 ml @ 100 mls/hr PRN Q1HR PRN IV SEE COMMENTS; Start at 18:15 Dextrose/Sodium Chloride (Iv D5% - NS) 1,000 ml @ 250 mls/hr Q4H IV Last administered on 05/25/16 19:31; Start 05/25/16 at 19:30 Insulin Detemir (Levemir) 20 units QHS SQ Last administered on 05/25/16 22:05 ; Start 05/25/16 at 21:15 Insulin Aspart (Novolog) 0-9 UNITS TIDWMEALS SQ ; Start 05/26/16 at 08:00 Dextrose 12.5 gm PRN Q15MIN PRN IV SEE COMMENTS Last administered on 05/26/16 01:39; Start 05/25/16 at 21:15 Famotidine (Pepcid) 20 mg 1X ONCE PO ; Start 05/25/16 at 21:15; Stop 05/25/16 at 21:20; Status DC Heparin Sodium (Porcine) 5,000 unit BID SQ Last administered on 05/26/16 10:22 ; Start 05/25/16 at 22:00 Vitals/I & O Vital Sign - Last 24 Hours 05/25/16 05/25/16 05/25/16 05/25/16 13:57 15:45 16:00 16:34 Temp 97.7 97.7 Pulse 96 98 96 81 Resp 24 30 24 B/P 130/62 106/53 115/54 121/56 Pulse Ox 99 98 96 O2 Delivery Room Air Room Air Room Air 05/25/16 05/25/16 05/25/16 05/25/16 18:00 18:15 18:30 18:34 Temp 97.5 97.5 Pulse 108 102 100 Resp 20 22 18 B/P 107/62 103/40 107/58 Pulse Ox 99 98 100 O2 Delivery Room Air Room Air Room Air Room Air 05/25/16 05/25/16 05/25/16 05/25/16 18:45 19:00 20:00 20:00 Temp 96.8 96.8 Pulse 98 89 90 Resp 20 20 18 B/P 108/53 105/64 117/69 Pulse Ox 98 97 97 O2 Delivery Room Air Room Air Room Air Room Air 05/25/16 05/25/16 05/25/16 05/26/16 21:00 22:00 23:00 00:00 Pulse 84 80 82 Resp 20 20 16 B/P 99/54 95/50 101/52 Pulse Ox 96 97 96 O2 Delivery Room Air Room Air Room Air Room Air 05/26/16 05/26/16 05/26/16 05/26/16 00:00 00:00 01:00 02:00 Temp 96.4 96.4 Pulse 81 82 72 Resp 12 13 B/P 96/56 99/52 88/36 Pulse Ox 96 96 96 O2 Delivery Room Air Room Air Room Air 05/26/16 05/26/16 05/26/16 05/26/16 03:00 04:00 04:00 05:00 Temp 96.5 96.5 Pulse 62 78 82 Resp 10 25 15 B/P 94/53 106/51 101/55 Pulse Ox 94 94 96 O2 Delivery Room Air Room Air Room Air Room Air 05/26/16 05/26/16 05/26/16 05/26/16 06:00 07:00 08:00 08:00 Temp 97.9 97.9 Pulse 75 78 84 Resp 18 14 B/P 103/53 82/46 98/58 Pulse Ox 95 98 97 O2 Delivery Room Air Room Air Room Air Room Air 05/26/16 05/26/16 05/26/16 09:00 10:00 11:00 Pulse 74 78 89 Resp 20 16 14 B/P 98/50 84/68 95/51 Pulse Ox 97 99 94 O2 Delivery Room Air Room Air Room Air Intake and Output 05/25/16 05/25/16 05/26/16 15:00 23:00 07:00 Intake Total 2538 ml Output Total 1975 ml 413 ml Balance -1975 ml 2125 ml EMMA TELLES III DO May 26, 2016 11:33
[2016-05-26] MEDS ORDERED: ASPI-493 PO (17:54)
[2016-05-26] MEDS ORDERED: PIOG30TA20 PO (17:54)
[2016-05-26] MEDS ORDERED: POLY1POW7 MC (17:54)
[2016-05-26] MEDS ORDERED: LISI-338 PO (17:54)
[2016-05-26] MEDS ORDERED: INSU100V13 SQ (17:54)
[2016-05-26] MEDS ORDERED: METF500T4 PO (17:54)
[2016-05-27] MEDS: INSULIN DETEMIR 300 UNITS/3 ML INSULN.PEN. SQ SCH ×2 (00:06→21:24)
[2016-05-27] MEDS: HEPARIN PF for SUB-Q USE 5,000 UNIT/0.5 ML VIAL. SQ SCH ×3 (00:06→21:25)
[2016-05-27 03:00] VITALS: BP 111/60
[2016-05-27] MEDS: IV NORMAL SALINE 1000ML BAG 1,000 ML IV SCH (03:00)
[2016-05-27] MEDS: IV DEXTROSE 5 %-0.45 % NACL 1,000 ML IV SCH (03:00)
[2016-05-27] MEDS: IV DEXTROSE 5% - 0.9 % NACL 1,000 ML IV SCH (03:30)
[2016-05-27 04:46] LABS: BASO % 0 % (0-3); EOS % 0 % (0-3); HEMATOCRIT 32.2 % (39.0-53.0); HEMOGLOBIN 10.8 g/dL (13.0-17.5); LYMPH # 4.4 x10^3/uL (1.0-4.8); LYMPH % 39 % (24-48); MEAN CORPUSCULAR HEMOGLOBIN 31 pg (25-35); MEAN CORPUSCULAR HGB CONC 33 g/dL (31-37); MEAN CORPUSCULAR VOLUME 94 fL (79-100); MONO % 4 % (0-9); NEUT % 57 % (31-73); PLATELET COUNT 147 x10^3/uL (140-400); RED BLOOD COUNT 3.44 x10^6/uL (4.30-5.70); WHITE BLOOD COUNT 11.2 x10^3/uL (4.0-11.0)
[2016-05-27 04:53] LABS: CALCIUM 8.7 mg/dL (8.5-10.1); CREATININE 1.3 mg/dL (0.7-1.3); GFR 52.9; POTASSIUM 3.4 mmol/L (3.5-5.1)
[2016-05-27 07:00] VITALS: BP 121/66
[2016-05-27] MEDS: INSULIN ASPART 300 UNITS/3 ML INSULN.PEN SQ SCH ×3 (08:31→18:08)
--- NOTE | 2016-05-27 10:17 | PDOC ---
PROGRESS NOTES Chief Complaint Chief Complaint CC - Hyperglycemic Assessment: Suspected DKA DM type 2 DM, non compliance Physical debility Plan BMP now as gap not improved. cotinine IV hydration for 1 day SSI Levemir compliance discussed with pt SNU placement in am History of Present Illness History of Present Illness no fever no chills no acute events Vitals Vitals Vital Signs Date Time Temp Pulse Resp B/P Pulse Ox O2 Delivery O2 Flow Rate FiO2 05/27/16 07:00 97.8 88 18 121/66 97 Room Air 97.8 Physical Exam General: Alert, Other (was drowsy, nonverbal) Heart: Regular rate, Normal S1, Normal S2 Lungs: Clear Abdomen: Soft, No tenderness Extremities: No clubbing, No cyanosis Skin: No significant lesion Labs LABS Laboratory Tests Test 05/26/16 12:17 05/26/16 17:22 05/26/16 23:50 05/27/16 03:40 Glucose (Fingerstick) 230mg/dL (70-99) 174mg/dL (70-99) 150mg/dL (70-99) White Blood Count 11.2x10^3/uL (4.0-11.0) Red Blood Count 3.44x10^6/uL (4.30-5.70) Hemoglobin 10.8g/dL (13.0-17.5) Hematocrit 32.2% (39.0-53.0) Mean Corpuscular Volume 94fL (79-100) Mean Corpuscular Hemoglobin 31pg (25-35) Mean Corpuscular Hemoglobin Concent 33g/dL (31-37) Red Cell Distribution Width 14.0% (11.5-14.5) Platelet Count 147x10^3/uL (140-400) Neutrophils (%) (Auto) 57% (31-73) Lymphocytes (%) (Auto) 39% (24-48) Monocytes (%) (Auto) 4% (0-9) Eosinophils (%) (Auto) 0% (0-3) Basophils (%) (Auto) 0% (0-3) Neutrophils # (Auto) 6.3x10^3uL (1.8-7.7) Lymphocytes # (Auto) 4.4x10^3/uL (1.0-4.8) Monocytes # (Auto) 0.4x10^3/uL (0.0-1.1) Eosinophils # (Auto) 0.0x10^3/uL (0.0-0.7) Basophils # (Auto) 0.0x10^3/uL (0.0-0.2) Sodium Level 144mmol/L (136-145) Potassium Level 3.4mmol/L (3.5-5.1) Chloride Level 107mmol/L (98-107) Carbon Dioxide Level 19mmol/L (21-32) Anion Gap 18 (6-14) Blood Urea Nitrogen 43mg/dL (8-26) Creatinine 1.3mg/dL (0.7-1.3) Estimated GFR (Cockcroft-Gault) 52.9 Glucose Level 224mg/dL (70-99) Calcium Level 8.7mg/dL (8.5-10.1) Test 05/27/16 07:01 Glucose (Fingerstick) 261mg/dL (70-99) Assessment and Plan Assessmemt and Plan Problems Medical Problems: (1) DKA (diabetic ketoacidoses) Status: Acute Problems: Comment Review of Relevant I have reviewed the following items monika (where applicable) has been applied. Labs Laboratory Tests Test 05/25/16 14:23 05/25/16 15:36 05/25/16 17:06 05/25/16 18:00 White Blood Count 20.5x10^3/uL (4.0-11.0) Red Blood Count 3.92x10^6/uL (4.30-5.70) Hemoglobin 12.1g/dL (13.0-17.5) Hematocrit 38.1% (39.0-53.0) Mean Corpuscular Volume 97fL (79-100) Mean Corpuscular Hemoglobin 31pg (25-35) Mean Corpuscular Hemoglobin Concent 32g/dL (31-37) Red Cell Distribution Width 14.7% (11.5-14.5) Platelet Count 251x10^3/uL (140-400) Neutrophils (%) (Auto) 64% (31-73) Lymphocytes (%) (Auto) 29% (24-48) Monocytes (%) (Auto) 6% (0-9) Eosinophils (%) (Auto) 0% (0-3) Basophils (%) (Auto) 1% (0-3) Neutrophils # (Auto) 13.2x10^3uL (1.8-7.7) Lymphocytes # (Auto) 6.0x10^3/uL (1.0-4.8) Monocytes # (Auto) 1.2x10^3/uL (0.0-1.1) Eosinophils # (Auto) 0.0x10^3/uL (0.0-0.7) Basophils # (Auto) 0.1x10^3/uL (0.0-0.2) Segmented Neutrophils % 68% (35-66) Band Neutrophils % 4% (0-9) Lymphocytes % 19% (24-48) Monocytes % 8% (0-10) Myelocytes % 1% (0-0) Toxic Granulation Slight Platelet Estimate Adequate (ADEQUATE) Sodium Level 136mmol/L (136-145) Potassium Level 5.7mmol/L (3.5-5.1) Chloride Level 93mmol/L (98-107) Carbon Dioxide Level 8mmol/L (21-32) Anion Gap 35 (6-14) Blood Urea Nitrogen 100mg/dL (8-26) Creatinine 3.8mg/dL (0.7-1.3) Estimated GFR (Cockcroft-Gault) 15.3 BUN/Creatinine Ratio 26 (6-20) Glucose Level 758mg/dL (70-99) Calcium Level 9.5mg/dL (8.5-10.1) Magnesium Level 3.2mg/dL (1.8-2.4) Total Bilirubin 1.0mg/dL (0.2-1.0) Aspartate Amino Transf (AST/SGOT) 15U/L (15-37) Alanine Aminotransferase (ALT/SGPT) 17U/L (16-63) Alkaline Phosphatase 94U/L (46-116) Total Protein 7.1g/dL (6.4-8.2) Albumin 3.3g/dL (3.4-5.0) Albumin/Globulin Ratio 0.9 (1.0-1.7) Urine Collection Type Unknown Urine Color Yellow Urine Clarity Clear Urine pH 5.0 Urine Specific Rhine 1.025 Urine Protein Negativemg/dL (NEG-TRACE) Urine Glucose (UA) >=1000mg/dL (NEG) Urine Ketones (Stick) 40mg/dL (NEG) Urine Blood Trace (NEG) Urine Nitrite Negative (NEG) Urine Bilirubin Moderate (NEG) Urine Urobilinogen Dipstick 0.2mg/dL (0.2 mg/dL) Urine Leukocyte Esterase Negative (NEG) Urine RBC Occ/HPF (0-2) Urine WBC 0/HPF (0-4) Urine Squamous Epithelial Cells None/LPF Urine Bacteria 0/HPF (0-FEW) Urine Mucus Slight/LPF Glucose (Fingerstick) 463mg/dL (70-99) Nasal Screen MRSA (PCR) Negative (Negative) Test 05/25/16 18:17 05/25/16 19:00 05/25/16 19:22 05/25/16 20:25 Glucose (Fingerstick) 319mg/dL (70-99) 181mg/dL (70-99) 168mg/dL (70-99) Sodium Level 146mmol/L (136-145) Potassium Level 3.9mmol/L (3.5-5.1) Chloride Level 103mmol/L (98-107) Carbon Dioxide Level 12mmol/L (21-32) Anion Gap 31 (6-14) Blood Urea Nitrogen 90mg/dL (8-26) Creatinine 3.1mg/dL (0.7-1.3) Estimated GFR (Cockcroft-Gault) 19.4 Glucose Level 256mg/dL (70-99) Calcium Level 8.7mg/dL (8.5-10.1) Phosphorus Level 5.4mg/dL (2.6-4.7) Magnesium Level 2.7mg/dL (1.8-2.4) Test 05/25/16 21:28 05/25/16 22:30 05/25/16 23:33 05/26/16 00:30 Glucose (Fingerstick) 171mg/dL (70-99) 155mg/dL (70-99) 142mg/dL (70-99) Sodium Level 146mmol/L (136-145) Potassium Level 3.5mmol/L (3.5-5.1) Chloride Level 108mmol/L (98-107) Carbon Dioxide Level 24mmol/L (21-32) Anion Gap 14 (6-14) Blood Urea Nitrogen 72mg/dL (8-26) Creatinine 2.4mg/dL (0.7-1.3) Estimated GFR (Cockcroft-Gault) 26.0 Glucose Level 110mg/dL (70-99) Calcium Level 8.0mg/dL (8.5-10.1) Phosphorus Level 3.0mg/dL (2.6-4.7) Magnesium Level 2.3mg/dL (1.8-2.4) Test 05/26/16 00:34 05/26/16 01:36 05/26/16 01:54 05/26/16 04:04 Glucose (Fingerstick) 99mg/dL (70-99) 60mg/dL (70-99) 120mg/dL (70-99) 107mg/dL (70-99) Test 05/26/16 04:08 05/26/16 08:03 05/26/16 12:17 05/26/16 17:22 White Blood Count 15.3x10^3/uL (4.0-11.0) Red Blood Count 3.34x10^6/uL (4.30-5.70) Hemoglobin 10.4g/dL (13.0-17.5) Hematocrit 30.2% (39.0-53.0) Mean Corpuscular Volume 90fL (79-100) Mean Corpuscular Hemoglobin 31pg (25-35) Mean Corpuscular Hemoglobin Concent 35g/dL (31-37) Red Cell Distribution Width 13.7% (11.5-14.5) Platelet Count 174x10^3/uL (140-400) Neutrophils (%) (Auto) 59% (31-73) Lymphocytes (%) (Auto) 35% (24-48) Monocytes (%) (Auto) 5% (0-9) Eosinophils (%) (Auto) 0% (0-3) Basophils (%) (Auto) 1% (0-3) Neutrophils # (Auto) 9.1x10^3uL (1.8-7.7) Lymphocytes # (Auto) 5.3x10^3/uL (1.0-4.8) Monocytes # (Auto) 0.8x10^3/uL (0.0-1.1) Eosinophils # (Auto) 0.0x10^3/uL (0.0-0.7) Basophils # (Auto) 0.1x10^3/uL (0.0-0.2) Sodium Level 145mmol/L (136-145) Potassium Level 3.6mmol/L (3.5-5.1) Chloride Level 108mmol/L (98-107) Carbon Dioxide Level 24mmol/L (21-32) Anion Gap 13 (6-14) Blood Urea Nitrogen 65mg/dL (8-26) Creatinine 2.0mg/dL (0.7-1.3) Estimated GFR (Cockcroft-Gault) 32.1 Glucose Level 106mg/dL (70-99) Calcium Level 8.2mg/dL (8.5-10.1) Glucose (Fingerstick) 123mg/dL (70-99) 230mg/dL (70-99) 174mg/dL (70-99) Test 05/26/16 23:50 05/27/16 03:40 05/27/16 07:01 Glucose (Fingerstick) 150mg/dL (70-99) 261mg/dL (70-99) White Blood Count 11.2x10^3/uL (4.0-11.0) Red Blood Count 3.44x10^6/uL (4.30-5.70) Hemoglobin 10.8g/dL (13.0-17.5) Hematocrit 32.2% (39.0-53.0) Mean Corpuscular Volume 94fL (79-100) Mean Corpuscular Hemoglobin 31pg (25-35) Mean Corpuscular Hemoglobin Concent 33g/dL (31-37) Red Cell Distribution Width 14.0% (11.5-14.5) Platelet Count 147x10^3/uL (140-400) Neutrophils (%) (Auto) 57% (31-73) Lymphocytes (%) (Auto) 39% (24-48) Monocytes (%) (Auto) 4% (0-9) Eosinophils (%) (Auto) 0% (0-3) Basophils (%) (Auto) 0% (0-3) Neutrophils # (Auto) 6.3x10^3uL (1.8-7.7) Lymphocytes # (Auto) 4.4x10^3/uL (1.0-4.8) Monocytes # (Auto) 0.4x10^3/uL (0.0-1.1) Eosinophils # (Auto) 0.0x10^3/uL (0.0-0.7) Basophils # (Auto) 0.0x10^3/uL (0.0-0.2) Sodium Level 144mmol/L (136-145) Potassium Level 3.4mmol/L (3.5-5.1) Chloride Level 107mmol/L (98-107) Carbon Dioxide Level 19mmol/L (21-32) Anion Gap 18 (6-14) Blood Urea Nitrogen 43mg/dL (8-26) Creatinine 1.3mg/dL (0.7-1.3) Estimated GFR (Cockcroft-Gault) 52.9 Glucose Level 224mg/dL (70-99) Calcium Level 8.7mg/dL (8.5-10.1) Laboratory Tests Test 05/26/16 12:17 05/26/16 17:22 05/26/16 23:50 05/27/16 03:40 Glucose (Fingerstick) 230mg/dL (70-99) 174mg/dL (70-99) 150mg/dL (70-99) White Blood Count 11.2x10^3/uL (4.0-11.0) Red Blood Count 3.44x10^6/uL (4.30-5.70) Hemoglobin 10.8g/dL (13.0-17.5) Hematocrit 32.2% (39.0-53.0) Mean Corpuscular Volume 94fL (79-100) Mean Corpuscular Hemoglobin 31pg (25-35) Mean Corpuscular Hemoglobin Concent 33g/dL (31-37) Red Cell Distribution Width 14.0% (11.5-14.5) Platelet Count 147x10^3/uL (140-400) Neutrophils (%) (Auto) 57% (31-73) Lymphocytes (%) (Auto) 39% (24-48) Monocytes (%) (Auto) 4% (0-9) Eosinophils (%) (Auto) 0% (0-3) Basophils (%) (Auto) 0% (0-3) Neutrophils # (Auto) 6.3x10^3uL (1.8-7.7) Lymphocytes # (Auto) 4.4x10^3/uL (1.0-4.8) Monocytes # (Auto) 0.4x10^3/uL (0.0-1.1) Eosinophils # (Auto) 0.0x10^3/uL (0.0-0.7) Basophils # (Auto) 0.0x10^3/uL (0.0-0.2) Sodium Level 144mmol/L (136-145) Potassium Level 3.4mmol/L (3.5-5.1) Chloride Level 107mmol/L (98-107) Carbon Dioxide Level 19mmol/L (21-32) Anion Gap 18 (6-14) Blood Urea Nitrogen 43mg/dL (8-26) Creatinine 1.3mg/dL (0.7-1.3) Estimated GFR (Cockcroft-Gault) 52.9 Glucose Level 224mg/dL (70-99) Calcium Level 8.7mg/dL (8.5-10.1) Test 05/27/16 07:01 Glucose (Fingerstick) 261mg/dL (70-99) Medications Current Medications Sodium Chloride 1,000 ml @ 1,000 mls/hr 1X ONCE IV Last administered on 14:27; Start 05/25/16 at 14:00; Stop 05/25/16 at 14:59; Status DC Insulin Human Regular 150 ml @ 0 mls/hr 1X ONCE IV Last administered on 16:05; Start 05/25/16 at 14:00; Stop 05/25/16 at 14:07; Status DC Insulin Human Regular 150 unit/ Sodium Chloride 151.5 ml @ 0 mls/hr CONT PRN PRN IV PER PROTOCOL; Start 05/25/16 at 15:30 Potassium Chloride 100 ml @ 100 mls/hr PRN Q1HR PRN IV SEE COMMENTS; Start at 15:30; Stop 05/25/16 at 18:20; Status DC Potassium Chloride 100 ml @ 100 mls/hr PRN Q1HR PRN IV SEE COMMENTS; Start at 15:30; Stop 05/25/16 at 18:21; Status DC Potassium Chloride 100 ml @ 100 mls/hr PRN Q1HR PRN IV SEE COMMENTS; Start at 15:30; Stop 05/25/16 at 18:21; Status DC Sodium Chloride (Iv Sodium Chloride 0.9% 1000ml Bag) 1,000 ml @ 1,000 mls/hr 1X ONCE IV Last administered on 05/25/16 15:45; Start 05/25/16 at 15:45; Stop 05/25/16 at 16:44; Status DC Ondansetron HCl 4 mg 4 mg PRN Q8HRS PRN IV NAUSEA/VOMITING; Start 05/25/16 at 15:45; Stop 05/26/16 at 15:44; Status DC Sodium Chloride (Iv Sodium Chloride 0.9% 1000ml Bag) 1,000 ml @ 125 mls/hr Q8H IV Last administered on 05/25/16 17:08; Start 05/25/16 at 15:37; Stop at 15:36; Status DC Sodium Bicarbonate 50 meq 1X ONCE IV Last administered on 05/25/16 16:01; Start 05/25/16 at 15:45; Stop 05/25/16 at 15:46; Status DC Insulin Human Regular (Novolin R Vial) 10 unit 1X ONCE IV ; Start 05/25/16 at 16:15; Stop 05/25/16 at 16:16; Status DC Lorazepam (Ativan) 1 mg 1X ONCE IV Last administered on 05/25/16 17:06; Start 05/25/16 at 17:00; Stop 05/25/16 at 17:01; Status DC Lorazepam 2 mg 2 mg STK-MED ONCE .ROUTE ; Start 05/25/16 at 16:59; Stop at 17:00; Status DC Sodium Chloride 1,000 ml @ 250 mls/hr Q4H IV ; Start 05/25/16 at 19:00 Dextrose/Sodium Chloride 1,000 ml @ 250 mls/hr Q4H IV Last administered on 20:40; Start 05/25/16 at 19:00 Insulin Human Regular 150 unit/ Sodium Chloride 151.5 ml @ 0 mls/hr CONT PRN PRN IV PER PROTOCOL; Start 05/25/16 at 18:15; Status UNV Potassium Chloride 100 ml @ 100 mls/hr PRN Q1HR PRN IV SEE COMMENTS; Start at 18:15 Potassium Chloride 100 ml @ 100 mls/hr PRN Q1HR PRN IV SEE COMMENTS; Start at 18:15 Potassium Chloride 100 ml @ 100 mls/hr PRN Q1HR PRN IV SEE COMMENTS; Start at 18:15 Dextrose/Sodium Chloride (Iv D5% - NS) 1,000 ml @ 250 mls/hr Q4H IV Last administered on 05/25/16 19:31; Start 05/25/16 at 19:30 Insulin Detemir (Levemir) 20 units QHS SQ Last administered on 05/27/16 00:06 ; Start 05/25/16 at 21:15 Insulin Aspart (Novolog) 0-9 UNITS TIDWMEALS SQ Last administered on 05/27/16 08:31; Start 05/26/16 at 08:00 Dextrose 12.5 gm PRN Q15MIN PRN IV SEE COMMENTS Last administered on 05/26/16 01:39; Start 05/25/16 at 21:15 Famotidine (Pepcid) 20 mg 1X ONCE PO ; Start 05/25/16 at 21:15; Stop 05/25/16 at 21:20; Status DC Heparin Sodium (Porcine) 5,000 unit BID SQ Last administered on 05/27/16 00:06 ; Start 05/25/16 at 22:00 Active Scripts Active Reported Polymyxin B Sulfate (Polymyxin B Sulfate,Micronized) 1 Each Powder.ea. 1 Each MC Actos (Pioglitazone Hcl) 30 Mg Tablet 1 Tab PO DAILY Lisinopril 5 Mg Tablet 1 Tab PO DAILY Metformin Hcl 500 Mg Tablet 1 Tab PO BID Levemir (Insulin Detemir) 100 Unit/1 Ml Vial 60 Unit SQ DAILY08 Anacin 400-32 Mg Tablet (Aspirin/Caffeine) 1 Each Tablet 1 Each PO Vitals/I & O Vital Sign - Last 24 Hours 05/26/16 05/26/16 05/26/16 05/26/16 11:00 12:00 12:00 13:00 Temp 98.2 98.2 Pulse 89 87 88 Resp 14 16 22 B/P 95/51 108/50 94/52 Pulse Ox 94 95 96 O2 Delivery Room Air Room Air Room Air Room Air 05/26/16 05/26/16 05/26/16 3/28/17 14:00 15:00 16:00 16:00 Pulse 75 85 82 Resp 14 21 B/P 104/56 105/52 96/51 Pulse Ox 95 97 96 O2 Delivery Room Air Room Air Room Air Room Air 05/26/16 05/26/16 05/26/16 05/27/16 19:00 20:00 23:00 03:00 Temp 97.5 98.8 98.8 97.5 98.8 98.8 Pulse 84 83 84 Resp 18 18 18 B/P 112/61 103/47 111/60 Pulse Ox 96 94 95 O2 Delivery Room Air 05/27/16 07:00 Temp 97.8 97.8 Pulse 88 Resp 18 B/P 121/66 Pulse Ox 97 O2 Delivery Room Air Intake and Output 05/26/16 05/26/16 05/27/16 15:00 23:00 07:00 Intake Total 625 ml 440 ml 120 ml Output Total 485 ml 340 ml Balance 140 ml 100 ml 120 ml Nutrition Consultation Dietary Evaluation: Recommendations by RD: Increase Calorie Intake, Protein supplementation Comments: Added Boost glucose control BID - 250kcal and 14g protein per serving Expected Outcomes/Goals: meet >75% est nutr needs Malnutrition Findings: Body Fat Depletion (Non Severe: Mild Depletion Malnutrition related to morbid: No Weight Status: Underweight RADHA MASTERSON MD May 27, 2016 10:17
[2016-05-27 10:51] VITALS: BP 109/54
[2016-05-27 13:28] LABS: CALCIUM 8.8 mg/dL (8.5-10.1); CREATININE 1.3 mg/dL (0.7-1.3); GFR 52.9; POTASSIUM 3.7 mmol/L (3.5-5.1)
[2016-05-27 14:37] VITALS: BP 105/59
[2016-05-27] MEDS ORDERED: IV NORMAL SALINE 1000ML BAG 1,000 ML IV ONE (15:00)
[2016-05-27 19:00] VITALS: BP 99/43
[2016-05-27 23:08] VITALS: BP 98/54
[2016-05-28 02:31] VITALS: BP 94/49
[2016-05-28 07:00] VITALS: BP 94/49
[2016-05-28] MEDS: INSULIN ASPART 300 UNITS/3 ML INSULN.PEN SQ SCH ×3 (07:51→17:00)
[2016-05-28 08:22] LABS: BASO % 0 % (0-3); EOS % 0 % (0-3); HEMATOCRIT 30.1 % (39.0-53.0); HEMOGLOBIN 10.2 g/dL (13.0-17.5); LYMPH # 4.2 x10^3/uL (1.0-4.8); LYMPH % 44 % (24-48); MEAN CORPUSCULAR HEMOGLOBIN 31 pg (25-35); MEAN CORPUSCULAR HGB CONC 34 g/dL (31-37); MEAN CORPUSCULAR VOLUME 91 fL (79-100); MONO % 5 % (0-9); NEUT % 51 % (31-73); PLATELET COUNT 147 x10^3/uL (140-400); RED CELL DISTRIBUTION WIDTH 13.6 % (11.5-14.5); WHITE BLOOD COUNT 9.4 x10^3/uL (4.0-11.0)
[2016-05-28 08:34] LABS: CALCIUM 8.4 mg/dL (8.5-10.1); CREATININE 0.9 mg/dL (0.7-1.3); GFR 80.8
[2016-05-28 08:38] LABS: POTASSIUM 2.8 mmol/L (3.5-5.1)
[2016-05-28] MEDS: HEPARIN PF for SUB-Q USE 5,000 UNIT/0.5 ML VIAL. SQ SCH ×2 (08:47→21:28)
[2016-05-28] MEDS ORDERED: POTASSIUM CHLORIDE 20MEQ 50 ML IV SCH (09:00)
[2016-05-28] MEDS: POTASSIUM CHLORIDE 10MEQ 100 ML IV SCH ×4 (10:11→16:13)
[2016-05-28 10:41] VITALS: BP 109/53
--- NOTE | 2016-05-28 12:30 | PDOC ---
PROGRESS NOTES Chief Complaint Chief Complaint CC - Hyperglycemic Assessment: Suspected DKA DM type 2 DM, non compliance Physical debility Hypokalemia, Severe Plan replace potassium d/w daughter and SW, anticipated dc in AM SSI Levemir compliance discussed with pt SNU placement in am History of Present Illness History of Present Illness no fever no chills no acute events Vitals Vitals Vital Signs Date Time Temp Pulse Resp B/P Pulse Ox O2 Delivery O2 Flow Rate FiO2 05/28/16 10:41 98.2 82 18 109/53 95 Room Air 98.2 Physical Exam General: Alert, Other (was drowsy, nonverbal) Heart: Regular rate, Normal S1, Normal S2 Lungs: Clear Abdomen: Soft, No tenderness Extremities: No clubbing, No cyanosis Skin: No significant lesion Labs LABS Laboratory Tests Test 05/27/16 12:50 05/27/16 16:11 05/27/16 20:25 05/28/16 07:17 Sodium Level 142mmol/L (136-145) Potassium Level 3.7mmol/L (3.5-5.1) Chloride Level 102mmol/L (98-107) Carbon Dioxide Level 24mmol/L (21-32) Anion Gap 16 (6-14) Blood Urea Nitrogen 40mg/dL (8-26) Creatinine 1.3mg/dL (0.7-1.3) Estimated GFR (Cockcroft-Gault) 52.9 Glucose Level 430mg/dL (70-99) Calcium Level 8.8mg/dL (8.5-10.1) Glucose (Fingerstick) 298mg/dL (70-99) 275mg/dL (70-99) 100mg/dL (70-99) Test 05/28/16 07:50 White Blood Count 9.4x10^3/uL (4.0-11.0) Red Blood Count 3.30x10^6/uL (4.30-5.70) Hemoglobin 10.2g/dL (13.0-17.5) Hematocrit 30.1% (39.0-53.0) Mean Corpuscular Volume 91fL (79-100) Mean Corpuscular Hemoglobin 31pg (25-35) Mean Corpuscular Hemoglobin Concent 34g/dL (31-37) Red Cell Distribution Width 13.6% (11.5-14.5) Platelet Count 147x10^3/uL (140-400) Neutrophils (%) (Auto) 51% (31-73) Lymphocytes (%) (Auto) 44% (24-48) Monocytes (%) (Auto) 5% (0-9) Eosinophils (%) (Auto) 0% (0-3) Basophils (%) (Auto) 0% (0-3) Neutrophils # (Auto) 4.8x10^3uL (1.8-7.7) Lymphocytes # (Auto) 4.2x10^3/uL (1.0-4.8) Monocytes # (Auto) 0.4x10^3/uL (0.0-1.1) Eosinophils # (Auto) 0.0x10^3/uL (0.0-0.7) Basophils # (Auto) 0.0x10^3/uL (0.0-0.2) Sodium Level 148mmol/L (136-145) Potassium Level 2.8mmol/L (3.5-5.1) Chloride Level 111mmol/L (98-107) Carbon Dioxide Level 31mmol/L (21-32) Anion Gap 6 (6-14) Blood Urea Nitrogen 23mg/dL (8-26) Creatinine 0.9mg/dL (0.7-1.3) Estimated GFR (Cockcroft-Gault) 80.8 Glucose Level 101mg/dL (70-99) Calcium Level 8.4mg/dL (8.5-10.1) Assessment and Plan Assessmemt and Plan Problems Medical Problems: (1) DKA (diabetic ketoacidoses) Status: Acute Problems: Comment Review of Relevant I have reviewed the following items monika (where applicable) has been applied. Labs Laboratory Tests Test 05/26/16 17:22 05/26/16 23:50 05/27/16 03:40 05/27/16 07:01 Glucose (Fingerstick) 174mg/dL (70-99) 150mg/dL (70-99) 261mg/dL (70-99) White Blood Count 11.2x10^3/uL (4.0-11.0) Red Blood Count 3.44x10^6/uL (4.30-5.70) Hemoglobin 10.8g/dL (13.0-17.5) Hematocrit 32.2% (39.0-53.0) Mean Corpuscular Volume 94fL (79-100) Mean Corpuscular Hemoglobin 31pg (25-35) Mean Corpuscular Hemoglobin Concent 33g/dL (31-37) Red Cell Distribution Width 14.0% (11.5-14.5) Platelet Count 147x10^3/uL (140-400) Neutrophils (%) (Auto) 57% (31-73) Lymphocytes (%) (Auto) 39% (24-48) Monocytes (%) (Auto) 4% (0-9) Eosinophils (%) (Auto) 0% (0-3) Basophils (%) (Auto) 0% (0-3) Neutrophils # (Auto) 6.3x10^3uL (1.8-7.7) Lymphocytes # (Auto) 4.4x10^3/uL (1.0-4.8) Monocytes # (Auto) 0.4x10^3/uL (0.0-1.1) Eosinophils # (Auto) 0.0x10^3/uL (0.0-0.7) Basophils # (Auto) 0.0x10^3/uL (0.0-0.2) Sodium Level 144mmol/L (136-145) Potassium Level 3.4mmol/L (3.5-5.1) Chloride Level 107mmol/L (98-107) Carbon Dioxide Level 19mmol/L (21-32) Anion Gap 18 (6-14) Blood Urea Nitrogen 43mg/dL (8-26) Creatinine 1.3mg/dL (0.7-1.3) Estimated GFR (Cockcroft-Gault) 52.9 Glucose Level 224mg/dL (70-99) Calcium Level 8.7mg/dL (8.5-10.1) Test 05/27/16 10:57 05/27/16 12:50 05/27/16 16:11 05/27/16 20:25 Glucose (Fingerstick) 324mg/dL (70-99) 298mg/dL (70-99) 275mg/dL (70-99) Sodium Level 142mmol/L (136-145) Potassium Level 3.7mmol/L (3.5-5.1) Chloride Level 102mmol/L (98-107) Carbon Dioxide Level 24mmol/L (21-32) Anion Gap 16 (6-14) Blood Urea Nitrogen 40mg/dL (8-26) Creatinine 1.3mg/dL (0.7-1.3) Estimated GFR (Cockcroft-Gault) 52.9 Glucose Level 430mg/dL (70-99) Calcium Level 8.8mg/dL (8.5-10.1) Test 05/28/16 07:17 05/28/16 07:50 Glucose (Fingerstick) 100mg/dL (70-99) White Blood Count 9.4x10^3/uL (4.0-11.0) Red Blood Count 3.30x10^6/uL (4.30-5.70) Hemoglobin 10.2g/dL (13.0-17.5) Hematocrit 30.1% (39.0-53.0) Mean Corpuscular Volume 91fL (79-100) Mean Corpuscular Hemoglobin 31pg (25-35) Mean Corpuscular Hemoglobin Concent 34g/dL (31-37) Red Cell Distribution Width 13.6% (11.5-14.5) Platelet Count 147x10^3/uL (140-400) Neutrophils (%) (Auto) 51% (31-73) Lymphocytes (%) (Auto) 44% (24-48) Monocytes (%) (Auto) 5% (0-9) Eosinophils (%) (Auto) 0% (0-3) Basophils (%) (Auto) 0% (0-3) Neutrophils # (Auto) 4.8x10^3uL (1.8-7.7) Lymphocytes # (Auto) 4.2x10^3/uL (1.0-4.8) Monocytes # (Auto) 0.4x10^3/uL (0.0-1.1) Eosinophils # (Auto) 0.0x10^3/uL (0.0-0.7) Basophils # (Auto) 0.0x10^3/uL (0.0-0.2) Sodium Level 148mmol/L (136-145) Potassium Level 2.8mmol/L (3.5-5.1) Chloride Level 111mmol/L (98-107) Carbon Dioxide Level 31mmol/L (21-32) Anion Gap 6 (6-14) Blood Urea Nitrogen 23mg/dL (8-26) Creatinine 0.9mg/dL (0.7-1.3) Estimated GFR (Cockcroft-Gault) 80.8 Glucose Level 101mg/dL (70-99) Calcium Level 8.4mg/dL (8.5-10.1) Laboratory Tests Test 05/27/16 12:50 05/27/16 16:11 05/27/16 20:25 05/28/16 07:17 Sodium Level 142mmol/L (136-145) Potassium Level 3.7mmol/L (3.5-5.1) Chloride Level 102mmol/L (98-107) Carbon Dioxide Level 24mmol/L (21-32) Anion Gap 16 (6-14) Blood Urea Nitrogen 40mg/dL (8-26) Creatinine 1.3mg/dL (0.7-1.3) Estimated GFR (Cockcroft-Gault) 52.9 Glucose Level 430mg/dL (70-99) Calcium Level 8.8mg/dL (8.5-10.1) Glucose (Fingerstick) 298mg/dL (70-99) 275mg/dL (70-99) 100mg/dL (70-99) Test 05/28/16 07:50 White Blood Count 9.4x10^3/uL (4.0-11.0) Red Blood Count 3.30x10^6/uL (4.30-5.70) Hemoglobin 10.2g/dL (13.0-17.5) Hematocrit 30.1% (39.0-53.0) Mean Corpuscular Volume 91fL (79-100) Mean Corpuscular Hemoglobin 31pg (25-35) Mean Corpuscular Hemoglobin Concent 34g/dL (31-37) Red Cell Distribution Width 13.6% (11.5-14.5) Platelet Count 147x10^3/uL (140-400) Neutrophils (%) (Auto) 51% (31-73) Lymphocytes (%) (Auto) 44% (24-48) Monocytes (%) (Auto) 5% (0-9) Eosinophils (%) (Auto) 0% (0-3) Basophils (%) (Auto) 0% (0-3) Neutrophils # (Auto) 4.8x10^3uL (1.8-7.7) Lymphocytes # (Auto) 4.2x10^3/uL (1.0-4.8) Monocytes # (Auto) 0.4x10^3/uL (0.0-1.1) Eosinophils # (Auto) 0.0x10^3/uL (0.0-0.7) Basophils # (Auto) 0.0x10^3/uL (0.0-0.2) Sodium Level 148mmol/L (136-145) Potassium Level 2.8mmol/L (3.5-5.1) Chloride Level 111mmol/L (98-107) Carbon Dioxide Level 31mmol/L (21-32) Anion Gap 6 (6-14) Blood Urea Nitrogen 23mg/dL (8-26) Creatinine 0.9mg/dL (0.7-1.3) Estimated GFR (Cockcroft-Gault) 80.8 Glucose Level 101mg/dL (70-99) Calcium Level 8.4mg/dL (8.5-10.1) Medications Current Medications Sodium Chloride 1,000 ml @ 1,000 mls/hr 1X ONCE IV Last administered on 14:27; Start 05/25/16 at 14:00; Stop 05/25/16 at 14:59; Status DC Insulin Human Regular 150 ml @ 0 mls/hr 1X ONCE IV Last administered on 16:05; Start 05/25/16 at 14:00; Stop 05/25/16 at 14:07; Status DC Insulin Human Regular 150 unit/ Sodium Chloride 151.5 ml @ 0 mls/hr CONT PRN PRN IV PER PROTOCOL; Start 05/25/16 at 15:30 Potassium Chloride 100 ml @ 100 mls/hr PRN Q1HR PRN IV SEE COMMENTS; Start at 15:30; Stop 05/25/16 at 18:20; Status DC Potassium Chloride 100 ml @ 100 mls/hr PRN Q1HR PRN IV SEE COMMENTS; Start at 15:30; Stop 05/25/16 at 18:21; Status DC Potassium Chloride 100 ml @ 100 mls/hr PRN Q1HR PRN IV SEE COMMENTS; Start at 15:30; Stop 05/25/16 at 18:21; Status DC Sodium Chloride (Iv Sodium Chloride 0.9% 1000ml Bag) 1,000 ml @ 1,000 mls/hr 1X ONCE IV Last administered on 05/25/16 15:45; Start 05/25/16 at 15:45; Stop 05/25/16 at 16:44; Status DC Ondansetron HCl 4 mg 4 mg PRN Q8HRS PRN IV NAUSEA/VOMITING; Start 05/25/16 at 15:45; Stop 05/26/16 at 15:44; Status DC Sodium Chloride (Iv Sodium Chloride 0.9% 1000ml Bag) 1,000 ml @ 125 mls/hr Q8H IV Last administered on 05/25/16 17:08; Start 05/25/16 at 15:37; Stop at 15:36; Status DC Sodium Bicarbonate 50 meq 1X ONCE IV Last administered on 05/25/16 16:01; Start 05/25/16 at 15:45; Stop 05/25/16 at 15:46; Status DC Insulin Human Regular (Novolin R Vial) 10 unit 1X ONCE IV ; Start 05/25/16 at 16:15; Stop 05/25/16 at 16:16; Status DC Lorazepam (Ativan) 1 mg 1X ONCE IV Last administered on 05/25/16 17:06; Start 05/25/16 at 17:00; Stop 05/25/16 at 17:01; Status DC Lorazepam 2 mg 2 mg STK-MED ONCE .ROUTE ; Start 05/25/16 at 16:59; Stop at 17:00; Status DC Sodium Chloride 1,000 ml @ 250 mls/hr Q4H IV ; Start 05/25/16 at 19:00; Stop at 14:53; Status DC Dextrose/Sodium Chloride 1,000 ml @ 250 mls/hr Q4H IV Last administered on 20:40; Start 05/25/16 at 19:00; Stop 05/27/16 at 14:54; Status DC Insulin Human Regular 150 unit/ Sodium Chloride 151.5 ml @ 0 mls/hr CONT PRN PRN IV PER PROTOCOL; Start 05/25/16 at 18:15; Status UNV Potassium Chloride 100 ml @ 100 mls/hr PRN Q1HR PRN IV SEE COMMENTS; Start at 18:15 Potassium Chloride 100 ml @ 100 mls/hr PRN Q1HR PRN IV SEE COMMENTS; Start at 18:15 Potassium Chloride 100 ml @ 100 mls/hr PRN Q1HR PRN IV SEE COMMENTS; Start at 18:15 Dextrose/Sodium Chloride (Iv D5% - NS) 1,000 ml @ 250 mls/hr Q4H IV Last administered on 05/25/16 19:31; Start 05/25/16 at 19:30; Stop 05/27/16 at 14:54 ; Status DC Insulin Detemir (Levemir) 20 units QHS SQ Last administered on 05/27/16 21:24 ; Start 05/25/16 at 21:15 Insulin Aspart (Novolog) 0-9 UNITS TIDWMEALS SQ Last administered on 05/28/16 11:39; Start 05/26/16 at 08:00 Dextrose 12.5 gm PRN Q15MIN PRN IV SEE COMMENTS Last administered on 05/26/16 01:39; Start 05/25/16 at 21:15 Famotidine (Pepcid) 20 mg 1X ONCE PO ; Start 05/25/16 at 21:15; Stop 05/25/16 at 21:20; Status DC Heparin Sodium (Porcine) 5000 unit 5,000 unit BID SQ Last administered on 08:47; Start 05/25/16 at 22:00 Sodium Chloride 1,000 ml @ 75 mls/hr 1X ONCE IV Last administered on 15:14; Start 05/27/16 at 15:00; Stop 05/28/16 at 04:19; Status DC Potassium Chloride 50 ml @ 50 mls/hr Q1H IV ; Start 05/28/16 at 09:00; Stop at 10:59; Status UNV Potassium Chloride (KCl Premix 10meq) 100 ml @ 100 mls/hr Q1H IV Last administered on 3/30/17at 12:03; Start 05/28/16 at 09:00; Stop 05/28/16 at 12:59 Active Scripts Active Reported Polymyxin B Sulfate (Polymyxin B Sulfate,Micronized) 1 Each Powder.ea. 1 Each MC Actos (Pioglitazone Hcl) 30 Mg Tablet 1 Tab PO DAILY Lisinopril 5 Mg Tablet 1 Tab PO DAILY Metformin Hcl 500 Mg Tablet 1 Tab PO BID Levemir (Insulin Detemir) 100 Unit/1 Ml Vial 60 Unit SQ DAILY08 Anacin 400-32 Mg Tablet (Aspirin/Caffeine) 1 Each Tablet 1 Each PO Vitals/I & O Vital Sign - Last 24 Hours 05/27/16 05/27/16 05/27/16 05/27/16 14:37 19:00 20:00 23:08 Temp 98.1 97.7 98.5 98.1 97.7 98.5 Pulse 90 95 91 Resp 14 20 20 B/P 105/59 99/43 98/54 Pulse Ox 92 93 96 O2 Delivery Room Air Room Air Room Air Room Air 05/28/16 05/28/16 05/28/16 02:31 07:00 10:41 Temp 98.0 98.4 98.2 98.0 98.4 98.2 Pulse 78 82 82 Resp 18 18 18 B/P 94/49 94/49 109/53 Pulse Ox 98 92 95 O2 Delivery Room Air Room Air Room Air Intake and Output 05/27/16 05/27/16 05/28/16 15:00 23:00 07:00 Intake Total 240 ml Output Total 1775 ml 350 ml Balance 240 ml -1775 ml -350 ml Nutrition Consultation Dietary Evaluation: Recommendations by RD: Increase Calorie Intake, Protein supplementation Comments: Added Boost glucose control BID - 250kcal and 14g protein per serving Expected Outcomes/Goals: meet >75% est nutr needs Malnutrition Findings: Body Fat Depletion (Non Severe: Mild Depletion Malnutrition related to morbid: No Weight Status: Underweight RADHA MASTERSON MD May 28, 2016 12:30
[2016-05-28 14:51] VITALS: BP 126/61
[2016-05-28 19:00] VITALS: BP 96/46
[2016-05-28] MEDS: INSULIN DETEMIR 300 UNITS/3 ML INSULN.PEN. SQ SCH (21:28)
[2016-05-28] MEDS ORDERED: INFLUENZA VAX SCREEN BY RX. MC ONE (21:30)
[2016-05-28 23:19] VITALS: BP 95/49
[2016-05-29 02:45] VITALS: BP 102/46
[2016-05-29 04:50] LABS: BASO % 0 % (0-3); EOS % 1 % (0-3); HEMATOCRIT 30.7 % (39.0-53.0); HEMOGLOBIN 10.5 g/dL (13.0-17.5); LYMPH # 4.6 x10^3/uL (1.0-4.8); LYMPH % 45 % (24-48); MEAN CORPUSCULAR HEMOGLOBIN 32 pg (25-35); MEAN CORPUSCULAR HGB CONC 34 g/dL (31-37); MEAN CORPUSCULAR VOLUME 92 fL (79-100); MONO % 5 % (0-9); NEUT % 48 % (31-73); PLATELET COUNT 145 x10^3/uL (140-400); RED BLOOD COUNT 3.33 x10^6/uL (4.30-5.70); RED CELL DISTRIBUTION WIDTH 13.5 % (11.5-14.5); WHITE BLOOD COUNT 10.1 x10^3/uL (4.0-11.0)
[2016-05-29 04:58] LABS: CALCIUM 8.2 mg/dL (8.5-10.1); CREATININE 0.7 mg/dL (0.7-1.3); POTASSIUM 3.1 mmol/L (3.5-5.1)
[2016-05-29 07:49] VITALS: BP 108/66
[2016-05-29] MEDS: INSULIN ASPART 300 UNITS/3 ML INSULN.PEN SQ SCH (08:00)
[2016-05-29] MEDS ORDERED: FLU VACC QUAD 2016-17 (36MOS+)/PF 0.5 ML SYRINGE. VAX IM ONE (09:00)
[2016-05-29] MEDS: HEPARIN PF for SUB-Q USE 5,000 UNIT/0.5 ML VIAL. SQ SCH (09:22)
[2016-05-29] MEDS ORDERED: POTASSIUM CHLORIDE 20 MEQ TABLET.ER. PO ONE (10:30)
[2016-05-29 11:22] VITALS: BP 110/55
--- NOTE | 2016-05-29 22:51 | DS ---
DATE OF DISCHARGE: 05/29/2016 DISCHARGE DIAGNOSES: 1. Suspected diabetic ketoacidosis. 2. Type 2 diabetes mellitus, noncompliant and uncontrolled. 3. Physical debility. 4. Hypokalemia, severe, resolved. BRIEF HOSPITAL COURSE: An 81-year-old male patient admitted to the hospital for suspected DKA. Initially, the patient was admitted to critical care unit. He was started on the DKA protocol. Later he has been transferred to a step-down unit. During the hospitalization, the patient had severe hypokalemia, which has been resolved with replacements of potassium. His blood sugars have been controlled between 200s to 150. The patient was requiring nearly 20 units of Levemir sliding scale insulin. Today, he deemed clinically stable to go to retirement facility and follow up with the primary care doctor and has been discussed with the patient and family members, daughter agreeable with the current plan. DISCHARGE EXAMINATION: GENERAL: Alert, oriented x 3. HEART: S1, S2 present. LUNGS: Anterior chest clear. ABDOMEN: Soft, nontender, no organomegaly. EXTREMITIES: No edema. DISCHARGE DISPOSITION: [facility] facility. DISCHARGE CONDITION: Stable. MEDICATIONS: Reviewed and reconciled. Please see MRAD. Total time spent for discharge is 35 minutes for patient education, counseling, and coordination of care. RADHA MASTERSON MD DR: PHILLY/troy JOB#: [id number] / [id number] [place]
== END 2016-05-29 13:20 | DRG 637 ==
LOC: ER 13:56 → 1 WEST ICU 15:32 → 5 SOUTH 05-26 18:06
PROVIDERS: ADMIT Internal Medicine Hematology & Oncology; ATTEND Internal Medicine Hematology & Oncology
DX: E13.11 Other specified diabetes mellitus with ketoacidosis with coma (principal); N17.0 Acute kidney failure with tubular necrosis; E44.1 Mild protein-calorie malnutrition; R64 Cachexia; Z68.1 Body mass index [BMI] 19.9 or less, adult; E87.6 Hypokalemia; Z83.3 Family history of diabetes mellitus; Z91.19 Patient's noncompliance with other medical treatment and regimen; Z91.11 Patient's noncompliance with dietary regimen; Z88.0 Allergy status to penicillin
CPT/HCPCS: 36415; 71010; 80048; 80053; 81001; 82947; 83735; 84100; 85007; 85027; 87641; 90686; 93005; 96361; 96365; 96374; 96375; J1815; J2060; J3480; J7030; J7042; 97116; 97530; 99285-25